=== PATIENT | male | born 1960 | race Caucasian/White ===

== ENCOUNTER 2018-03-14 14:39 | Inpatient (IN) | payer OTHER ==
[~2018-03-14 14:39] MED LIST: DEXAMETHASONE SOD PHOSPHATE INJ 4 MG/1 ML VIAL ONE; GLYCOPYRROLATE 1 MG/5 ML SYRINGE ONE; METOCLOPRAMIDE HCL INJ/PF 10 MG/2 ML SDV ONE; NEOSTIGMINE METHYLSULFATE 10 MG/10 ML VIAL ONE; ONDANSETRON HCL INJ/PF 4 MG/2 ML SDV ONE; PHENYLEPHRINE HCL INJ/PF 10 MG/1 ML SDV ONE; ROCURONIUM BROMIDE INJ 50 MG/5 ML VIAL IV ONE; SUCCINYLCHOLINE CHLORIDE INJ 200 MG/10 ML VIAL ONE
[2018-03-14] MEDS ORDERED: MORPHINE SULFATE 10 MG/ML INJ IV ONE (15:47)
--- NOTE | 2018-03-14 15:47 | ER Document Report ---
ED Medical Screen (RME) - General Chief Complaint: Abdominal Pain Stated Complaint: ABDOMINAL PAIN Time Seen by Provider: 03/14/18 15:28 - HPI Notes: Patient is a 58-year-old male that presents to the emergency department for chief complaint of abdominal hernia. Patient states he has had an abdominal hernia for years. Today the hernia became significantly more painful and feels hard to touch. ROS: GENERAL: Denies fever of chills CV: Denies chest pain PHYSICAL EXAMINATION: GENERAL: Well-appearing, well-nourished and in no acute distress. HEAD: Atraumatic, normocephalic. EYES: Pupils equal round extraocular movements intact, conjunctiva are normal. ENT: Nares patent NECK: Normal range of motion LUNGS: No respiratory distress abdominal: Large tender and hard ventral hernia not reduced Musculoskeletal: Normal range of motion NEUROLOGICAL: Normal speech, normal gait. PSYCH: Normal mood, normal affect. MDM: Patient seen and examined for rapid initial assessment. Vital signs reviewed. A comprehensive ED assessment and evaluation of the patient, analysis of test results and completion of the medical decision making process will be conducted by additional ED providers. - Related Data Allergies/Adverse Reactions: meperidine [From Demerol] Allergy (Verified 03/14/18 15:31) Past Medical History - Social History Chew tobacco use (# tins/day): No Frequency of alcohol use: None Drug Abuse: None - Past Medical History Cardiac Medical History: Reports: Hx Hypercholesterolemia, Hx Hypertension Renal/ Medical History: Reports: Hx Kidney Stones. Denies: Hx Peritoneal Dialysis Past Surgical History: Reports: Hx Abdominal Surgery - gastric bypass, Hx Orthopedic Surgery - sri knee/r hand Physical Exam - Vital signs Vitals: Temp Pulse Resp BP Pulse Ox 97.6 F 69 20 162/89 H 100 03/14/18 15:22 03/14/18 15:22 03/14/18 15:22 03/14/18 15:22 03/14/18 15:22 Course - Vital Signs Vital signs: Temp Pulse Resp BP Pulse Ox 97.6 F 69 20 162/89 H 100 03/14/18 15:22 03/14/18 15:22 03/14/18 15:22 03/14/18 15:22 03/14/18 15:22
[2018-03-14 16:25] LABS: ABSOLUTE EOSINOPHILS # (AUTO) 0.1 10^3/uL (0.0-0.6); ABSOLUTE LYMPHOCYTES (AUTO) 1.1 10^3/uL (0.5-4.7); ABSOLUTE MONOCYTES (AUTO) 0.5 10^3/uL (0.1-1.4); BASOPHILS % (AUTO) 0.6 % (0-2); EOSINOPHILS % (AUTO) 1.6 % (0-6); HEMATOCRIT 43.1 % (37.9-51.0); LYMPHOCYTES % (AUTO) 15.6 % (13-45); MEAN CORPUSCULAR HEMOGLOBIN 33.2 pg (27.0-33.4); MEAN CORPUSCULAR HGB CONC 34.8 g/dL (32.0-36.0); MEAN CORPUSCULAR VOLUME 95 fl (80-97); PLATELET COUNT 168 10^3/uL (150-450); RED BLOOD COUNT 4.52 10^6/uL (4.35-5.55); RED CELL DISTRIBUTION WIDTH 13.9 % (11.5-14.0); SEGMENTED NEUTROPHILS % (AUTO) 74.2 % (42-78); TOTAL CELLS COUNTED % (AUTO) 100 %; WHITE BLOOD COUNT 6.8 10^3/uL (4.0-10.5)
--- NOTE | 2018-03-14 16:25 | ER Document Report ---
ED GI/ - General Chief Complaint: Abdominal Pain Stated Complaint: ABDOMINAL PAIN Time Seen by Provider: 03/14/18 15:28 Mode of Arrival: Ambulatory Information source: Patient Notes: Patient states that around lunchtime today he was getting on a motorcycle and noticed that he was having sharp increase in pain to his abdomen at the site of his umbilical hernia. Patient states that he always has had a chronic hernia to this area that does not completely reduce. Patient does typically wear an abdominal binder to help prevent any problems with the hernia. Patient does complain of some nausea. Patient denies any vomiting or fever. Patient states that the appearance of his hernia has changed and is much larger and the pain is more severe that he has had with his hernia in the past. - HPI Patient complains to provider of: Abdominal pain Onset: This afternoon Timing/Duration: Sudden Quality of pain: Sharp Pain Level: 3 Location: Other - Periumbilical Associated symptoms: Nausea. 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 Denies: Hx Peritoneal Dialysis Past Surgical History: Reports: Hx Abdominal Surgery - gastric bypass, Hx Orthopedic Surgery - sri knee/r hand Review of Systems - Review of Systems Constitutional: No symptoms reported. denies: Fever EENT: No symptoms reported Cardiovascular: No symptoms reported. denies: Chest pain Respiratory: No symptoms reported. denies: Cough, Short of breath Gastrointestinal: Abdominal pain, Nausea, Other - Increased size of appearance of abdominal hernia. denies: Diarrhea, Vomiting Genitourinary: No symptoms reported Male Genitourinary: No symptoms reported Musculoskeletal: No symptoms reported. denies: Back pain Skin: No symptoms reported Hematologic/Lymphatic: No symptoms reported Neurological/Psychological: No symptoms reported. denies: Headaches Physical Exam - Vital signs Vitals: Temp Pulse Resp BP Pulse Ox 97.6 F 69 20 162/89 H 100 03/14/18 15:22 03/14/18 15:22 03/14/18 15:22 03/14/18 15:22 03/14/18 15:22 - General General appearance: Appears well, Alert General appearance pediatric: Attentiveness normal In distress: None - HEENT Head: Normocephalic, Atraumatic Eyes: Normal Conjunctiva: Normal Nasal: Normal Mouth/Lips: Normal Mucous membranes: Normal Pharynx: Normal Neck: Normal, Supple. No: Lymphadenopathy - Respiratory Respiratory status: No respiratory distress Chest status: Nontender Breath sounds: Normal Chest palpation: Normal - Cardiovascular Rhythm: Regular Heart sounds: S1 appreciated, S2 appreciated - Abdominal Inspection: Obese, Other - Umbilical hernia Distension: No distension Bowel sounds: Normal Tenderness: Tender - Tenderness over umbilical hernia Organomegaly: No organomegaly - Back Back: Normal, Nontender. No: CVA tenderness - Extremities General upper extremity: Normal inspection, Normal strength General lower extremity: Normal inspection, Normal strength - Neurological Neuro grossly intact: Yes Cognition: Normal Annie Coma Scale Eye Opening: Spontaneous Wilmont Coma Scale Verbal: Oriented Annie Coma Scale Motor: Obeys Commands - Psychological Associated symptoms: Normal affect, Normal mood - Skin Skin Temperature: Warm Skin Moisture: Dry Skin Color: Normal Course - Re-evaluation Re-evalutation: 03/14/18 16:[address] Pineda who recommends calling him back once the patient's laboratory tests have resulted. 03/14/18 16:[address] Pineda and reviewed patient's laboratory test results. Dr. Pineda will be by to evaluate patient. 03/14/18 17:18 Dr. Pineda at bedside for examination 03/14/18 17:34 Dr. Pineda plans to take patient to the OR, is calling OR crew at this time. - Vital Signs Vital signs: Temp Pulse Resp BP Pulse Ox 97.6 F 69 20 162/89 H 100 03/14/18 15:22 03/14/18 15:22 03/14/18 15:22 03/14/18 15:22 03/14/18 15:22 - Laboratory Result Diagrams: 03/14/18 16:03 03/14/18 16:03 Laboratory results interpreted by me: 03/14/18 16:03 Sodium 136.3 L Alkaline Phosphatase 173 H Labs- Entire Visit 03/14/18 03/14/18 03/14/18 16:03 16:03 16:03 WBC 6.8 RBC 4.52 Hgb 15.0 Hct 43.1 MCV 95 MCH 33.2 MCHC 34.8 RDW 13.9 Plt Count 168 Seg Neutrophils % 74.2 Lymphocytes % 15.6 Monocytes % 8.0 Eosinophils % 1.6 Basophils % 0.6 Absolute Neutrophils 5.0 Absolute Lymphocytes 1.1 Absolute Monocytes 0.5 Absolute Eosinophils 0.1 Absolute Basophils 0.0 Sodium 136.3 L Potassium 4.7 Chloride 98 Carbon Dioxide 27 Anion Gap 11 BUN 11 Creatinine 0.91 Est GFR ( Amer) > 60 Est GFR (Non-Af Amer) > 60 Glucose 101 Lactic Acid 1.9 Calcium 9.1 Total Bilirubin 0.6 Direct Bilirubin 0.3 Neonat Total Bilirubin Not Reportable Neonat Direct Bilirubin Not Reportable Neonat Indirect Bili Not Reportable AST 57 ALT 36 Alkaline Phosphatase 173 H Total Protein 7.2 Albumin 4.4 Discharge - Discharge Clinical Impression: Umbilical hernia, Abdominal pain Condition: Stable Disposition: ADMITTED INPATIENT Admitting Provider: Surgicalist Unit Admitted: Medical Floor
[2018-03-14 16:36] LABS: ALANINE AMINOTRANSFERASE 36 U/L (21-72); ALBUMIN 4.4 g/dL (3.5-5.0); ALKALINE PHOSPHATASE 173 U/L (38-126); ANION GAP 11 (5-19); ASPARTATE AMINO TRANSFERASE 57 U/L (17-59); BILIRUBIN,DIRECT 0.3 mg/dL (0.0-0.4); BILIRUBIN,TOTAL 0.6 mg/dL (0.2-1.3); BLOOD UREA NITROGEN 11 mg/dL (7-20); CALCIUM 9.1 mg/dL (8.4-10.2); CARBON DIOXIDE 27 mmol/L (22-30); CHLORIDE 98 mmol/L (98-107); GLUCOSE 101 mg/dL (75-110); POTASSIUM 4.7 mmol/L (3.6-5.0); SODIUM 136.3 mmol/L (137-145); TOTAL PROTEIN 7.2 g/dL (6.3-8.2)
--- NOTE | 2018-03-14 17:41 | PDOC H&P ---
History of Present Illness Patient complains of: tender umbilical hernia History of Present Illness: PARIS FORD is a 58 year old male with a hx of umbilical hernia, tender today and patient being unable to reduce it. He reports nausea, no vomiting, and gives a hx of umbilical hernia for 2 years. 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 Past Medical History Cardiac Medical History: Reports: Hyperlipidema, Hypertension Past Surgical History Past Surgical History: Reports: Orthopedic Surgery - sri knee/r hand Social History Smoking Status: Never Smoker Family History Parental Family History Reviewed: No Children Family History Reviewed: No Sibling(s) Family History Reviewed.: No Medication/Allergy Allergies/Adverse Reactions: meperidine [From Demerol] Allergy (Verified 03/14/18 15:31) Physical Exam Vital Signs: Temp Pulse Resp BP Pulse Ox 97.6 F 69 20 162/89 H 100 03/14/18 15:22 03/14/18 15:22 03/14/18 15:22 03/14/18 15:22 03/14/18 15:22 Intake & Output 03/13/18 03/14/18 03/15/18 06:59 06:59 06:59 Weight 88.451 kg General appearance: PRESENT: no acute distress, obese Head exam: PRESENT: atraumatic Eye exam: PRESENT: EOMI Mouth exam: PRESENT: moist Neck exam: PRESENT: full ROM Respiratory exam: PRESENT: clear to auscultation sri Cardiovascular exam: PRESENT: RRR GI/Abdominal exam: PRESENT: soft, tenderness - at the umbilicus with incarcerated reducible hernia Extremities exam: PRESENT: full ROM Musculoskeletal exam: PRESENT: full ROM Neurological exam: PRESENT: alert, awake Skin exam: PRESENT: warm Results Laboratory Results: 03/14/18 16:03 03/14/18 16:03 03/14/18 03/14/18 03/14/18 16:03 16:03 16:03 WBC 6.8 RBC 4.52 Hgb 15.0 Hct 43.1 MCV 95 MCH 33.2 MCHC 34.8 RDW 13.9 Plt Count 168 Seg Neutrophils % 74.2 Lymphocytes % 15.6 Monocytes % 8.0 Eosinophils % 1.6 Basophils % 0.6 Absolute Neutrophils 5.0 Absolute Lymphocytes 1.1 Absolute Monocytes 0.5 Absolute Eosinophils 0.1 Absolute Basophils 0.0 Sodium 136.3 L Potassium 4.7 Chloride 98 Carbon Dioxide 27 Anion Gap 11 BUN 11 Creatinine 0.91 Est GFR ( Amer) > 60 Est GFR (Non-Af Amer) > 60 Glucose 101 Lactic Acid 1.9 Calcium 9.1 Total Bilirubin 0.6 AST 57 ALT 36 Alkaline Phosphatase 173 H Total Protein 7.2 Albumin 4.4 Assessment & Plan - Plan Summary Plan Summary: A/ Incarcerated, reducible umbilical hernia hx of laparoscopic gastric bypass bilateral knee replacement peripheral neuropathy Blood work within normal limit 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
[2018-03-14] MEDS ORDERED: CEFOXITIN 1 GM/D5W RTU 1 GM/50 ML RTUPB IV PRN (17:42)
[2018-03-14] MEDS ORDERED: HYDROMORPHONE HCL INJ/PF 2 MG/ML AMPULE ONE (17:52)
[2018-03-14] MEDS ORDERED: FENTANYL CITRATE INJ/PF 100 MCG/2 ML AMPUL ONE (17:52)
[2018-03-14] MEDS ORDERED: PROPOFOL INJ 200 MG/20 ML VIAL IV ONE (17:53)
[2018-03-14] MEDS ORDERED: ACETAMINOPHEN 0 MG/0 ML RTUPB IV ONE (17:53)
[2018-03-14] MEDS ORDERED: MIDAZOLAM 2 MG/2 ML INJ ONE (17:53)
[2018-03-14] MEDS ORDERED: CEFOXITIN 1 GM/D5W RTU 1 GM/50 ML RTUPB IV ONE ×2 (18:04→18:05)
--- NOTE | 2018-03-14 18:43 | EKG REPORT ---
SEVERITY:- NORMAL ECG - SINUS RHYTHM : Confirmed by: Urban Jones MD 14-Mar-2018 18:42:57
[2018-03-14] MEDS ORDERED: LIDOCAINE 1%/EPINEPHRINE INJ 20 ML VIAL ONE (18:57)
[2018-03-14] MEDS ORDERED: DEXMEDETOMIDINE INJ 80 MCG/20 ML VIAL IV ONE (18:57)
[2018-03-14] MEDS ORDERED: ACETAMINOPHEN 1,000 MG/100 ML RTUPB IV ONE (18:58)
[2018-03-14] MEDS ORDERED: ONDANSETRON HCL INJ/PF 4 MG/2 ML SDV IV PRN ×2 (19:43→21:22)
[2018-03-14] MEDS ORDERED: MORPHINE SULFATE 10 MG/ML INJ IV PRN ×2 (19:43→21:22)
[2018-03-14] MEDS ORDERED: FENTANYL CITRATE INJ/PF 100 MCG/2 ML AMPUL IV PRN ×3 (19:43)
[2018-03-14] MEDS ORDERED: PROMETHAZINE HCL INJ 25 MG/1 ML VIAL IV PRN ×2 (19:43)
[2018-03-14] MEDS ORDERED: DIPHENHYDRAMINE HCL 50 MG/ML VIAL IV PRN (19:43)
--- NOTE | 2018-03-14 21:18 | Operative Report ---
Nonrecallable Operative Report DATE OF SURGERY: 03/14/18 PREOPERATIVE DIAGNOSIS: incarcerated umbilical hernia POSTOPERATIVE DIAGNOSIS: same OPERATION: open repair of incarcerated umbilical hernia with Ventralex mesh SURGEON: GAUDENCIO CORONEL ANESTHESIA: Local - 20 mL 1% lidocaine with epinephrine TISSUE REMOVED OR ALTERED: hernia sac and hernia sac fat content COMPLICATIONS: none ESTIMATED BLOOD LOSS: 50 mL INTRAOPERATIVE FINDINGS: large umbilical sac with incarcerated intraperitoneal fat PROCEDURE: see dictation
[2018-03-14] MEDS ORDERED: NORMAL SALINE 1000 ML 1,000 ML IV PRN (21:22)
[2018-03-14] MEDS ORDERED: ACETAMINOPHEN 1,000 MG/100 ML RTUPB IV SCH (22:00)
[2018-03-14] MEDS ORDERED: CEFOXITIN 1 GM/D5W RTU 1 GM/50 ML RTUPB IV SCH (22:00)
[2018-03-14] MEDS ORDERED: HEPARIN SOD (PORCINE) 5,000 UNIT/ML 1 ML SYRINGE SUBCUT ONE (22:15)
[2018-03-15 06:21] LABS: ABSOLUTE LYMPHOCYTES (AUTO) 0.4 10^3/uL (0.5-4.7); ABSOLUTE MONOCYTES (AUTO) 0.4 10^3/uL (0.1-1.4); ABSOLUTE NEUT (AUTO) 5.7 10^3/uL (1.7-8.2); BASOPHILS % (AUTO) 0.2 % (0-2); HEMATOCRIT 39.7 % (37.9-51.0); HEMOGLOBIN 14.1 g/dL (13.5-17.0); LYMPHOCYTES % (AUTO) 6.4 % (13-45); MEAN CORPUSCULAR HEMOGLOBIN 33.6 pg (27.0-33.4); MEAN CORPUSCULAR HGB CONC 35.5 g/dL (32.0-36.0); MEAN CORPUSCULAR VOLUME 94 fl (80-97); MONOCYTES % (AUTO) 5.7 % (3-13); PLATELET COUNT 124 10^3/uL (150-450); RED BLOOD COUNT 4.21 10^6/uL (4.35-5.55); RED CELL DISTRIBUTION WIDTH 13.6 % (11.5-14.0); SEGMENTED NEUTROPHILS % (AUTO) 87.7 % (42-78); TOTAL CELLS COUNTED % (AUTO) 100 %; WHITE BLOOD COUNT 6.5 10^3/uL (4.0-10.5)
[2018-03-15 06:47] LABS: ANION GAP 10 (5-19); BLOOD UREA NITROGEN 14 mg/dL (7-20); CALCIUM 8.5 mg/dL (8.4-10.2); CARBON DIOXIDE 22 mmol/L (22-30); CHLORIDE 103 mmol/L (98-107); GLUCOSE 142 mg/dL (75-110); POTASSIUM 4.8 mmol/L (3.6-5.0); SODIUM 134.7 mmol/L (137-145)
[2018-03-15] MEDS: FAMOTIDINE INJ/PF 20 MG/2 ML SDV IV SCH ×2 (09:54→09:55)
[2018-03-15] MEDS ORDERED: HEPARIN SOD (PORCINE) 5,000 UNIT/ML 1 ML SYRINGE SUBCUT SCH (10:00)
--- NOTE | 2018-03-15 11:39 | PDOC DISCHARGE SUMMARY ---
General - Admit/Disc Date/PCP Admission Date/Primary Care Provider: 03/14/18 18:14 Discharge Date: 03/15/18 - Discharge Diagnosis (1) Incarcerated hernia Is this a current diagnosis for this admission?: Yes - Additional Information Resuscitation Status: Full Code Discharge Diet: As Tolerated Discharge Activity: No Lifting Over 10 Pounds, Walk Frequently Prescriptions: Oxycodone HCl/Acetaminophen [Percocet 10-325 Mg Tablet] 1 each PO Q4H PRN #20 tablet PRN Reason: For Pain Home Medications: Oxycodone HCl/Acetaminophen [Percocet 10-325 Mg Tablet] 1 each PO Q4H PRN #20 tablet 03/15/18 History of Present Illness Patient complains of: abd incisional pain, generalized pain resolved History of Present Illness: PARIS FORD is a 58 year old male who presesented iwth incarcerated abd wall hernia was taken to surgery last pm incarcerated fat was noted hernia repaired with mesh pt has had a routine post op course now taking po wound clean dry [pt ready for dc home today Hospital Course Hospital Course: PARIS FORD is a 58 year old male who presesented iwth incarcerated abd wall hernia was taken to surgery last pm incarcerated fat was noted hernia repaired with mesh pt has had a routine post op course now taking po wound clean dry [pt ready for dc home today Physical Exam Vital Signs: Temp Pulse Resp BP Pulse Ox 98.2 F 66 16 124/75 95 03/15/18 08:00 03/15/18 08:00 03/15/18 08:00 03/15/18 08:00 03/15/18 08:00 Intake & Output 03/14/18 03/15/18 03/16/18 06:59 06:59 06:59 Intake Total 3200 Output Total 2150 Balance 1050 Weight 95.9 kg GI/Abdominal exam: PRESENT: soft, other - wound examined, clean dry Results Laboratory Results: 03/15/18 05:58 03/15/18 05:58 03/14/18 03/14/18 03/14/18 16:03 16:03 16:03 WBC 6.8 RBC 4.52 Hgb 15.0 Hct 43.1 MCV 95 MCH 33.2 MCHC 34.8 RDW 13.9 Plt Count 168 Seg Neutrophils % 74.2 Lymphocytes % 15.6 Monocytes % 8.0 Eosinophils % 1.6 Basophils % 0.6 Absolute Neutrophils 5.0 Absolute Lymphocytes 1.1 Absolute Monocytes 0.5 Absolute Eosinophils 0.1 Absolute Basophils 0.0 Sodium 136.3 L Potassium 4.7 Chloride 98 Carbon Dioxide 27 Anion Gap 11 BUN 11 Creatinine 0.91 Est GFR ( Amer) > 60 Est GFR (Non-Af Amer) > 60 Glucose 101 Lactic Acid 1.9 Calcium 9.1 Total Bilirubin 0.6 AST 57 ALT 36 Alkaline Phosphatase 173 H Total Protein 7.2 Albumin 4.4 03/15/18 03/15/18 05:58 05:58 WBC 6.5 RBC 4.21 L Hgb 14.1 Hct 39.7 MCV 94 MCH 33.6 H MCHC 35.5 RDW 13.6 Plt Count 124 L Seg Neutrophils % 87.7 H Lymphocytes % 6.4 L Monocytes % 5.7 Eosinophils % 0.0 Basophils % 0.2 Absolute Neutrophils 5.7 Absolute Lymphocytes 0.4 L Absolute Monocytes 0.4 Absolute Eosinophils 0.0 Absolute Basophils 0.0 Sodium 134.7 L Potassium 4.8 Chloride 103 Carbon Dioxide 22 Anion Gap 10 BUN 14 Creatinine 0.81 Est GFR ( Amer) > 60 Est GFR (Non-Af Amer) > 60 Glucose 142 H Lactic Acid Calcium 8.5 Total Bilirubin AST ALT Alkaline Phosphatase Total Protein Albumin Qualifiers - * PATIENT BEING DISCHARGED WITH ANY OF THE FOLLOWING DIAGNOSIS: No
[2018-03-15 12:29] VITALS: BP 132/80
--- NOTE | 2018-03-16 07:47 | OPERATIVE REPORT E ---
Operative Report NAME: PARIS FORD : 1960 AGE: 58Y DATE OF SURGERY: 03/14/2018 ROOM: 434 PREOPERATIVE DIAGNOSIS: INCARCERATED UMBILICAL HERNIA. POSTOPERATIVE DIAGNOSIS: INCARCERATED UMBILICAL HERNIA. OPERATION: Open repair of incarcerated umbilical hernia with mesh. SURGEON: GAUDENCIO CORONEL M.D. PRICING SPECIALIST: None. BLEEDIN mL COMPLICATIONS: None. ANESTHESIA: General plus 20 mL of 1% lidocaine with epinephrine. FLUIDS: 1600 URINE OUTPUT: 450 DRAINS: None. INDICATION AND FINDINGS: This is a morbidly obese 58-year-old male who presented to the emergency room with a 2-year history of umbilical hernia, which has become progressively larger. Today when he was walking outside his house the patient started complaining of abdominal pain, scrotal swelling, unable to reduce the umbilical hernia. He presented to the emergency room with above symptoms. The patient underwent blood work, which was within normal limits, and he was preop'd to undergo open repair of the incarcerated umbilical hernia with mesh. The procedure, benefits, and complications explained to the patient. He understands and decides to proceed. DESCRIPTION OF PROCEDURE: The procedure was done in the operating room. The patient in supine position. General anesthesia induced by endotracheal intubation. The abdomen prepped and draped in the usual fashion following placement of Conrad catheter. A transverse incision was made just below the umbilicus. Skin flaps were elevated circumferentially. The umbilical skin was elevated in the superior direction. Divided the umbilical hernia sac. It was then slowly dissected by blunt and Bovie. was completed, circumferentially . The overlying skin of the umbilicus was then from the umbilical sac. The umbilical sac was then entered and a large content made of intraperitoneal fat was identified and this was directed in the surface of the sac. With the use of Bovie, a portion of the omental fat was from the surface of the sac. However, because a large amount of fat and the dusky appearance of the fat, this was excised and sent to Pathology as a surgery specimen. The peritoneal cavity was then fully inspected. The finger was then placed inside the hernia defect, which was about 2 cm in diameter, and swept circumferentially. A few adhesions of the intraabdominal fat to the anterior abdominal wall were taken down bluntly and with Bovie. The sac was then trimmed about 2 cm proximal to the edges of the hernia. The fascia surrounding the hernia was then scored with Bovie and elevated. The anterior rectus sheath was then scored circumferentially to the hernia defect and elevated from the muscle. This was done for about 2 cm proximal to the hernia defect. The stump of the hernia sac was then closed with a running locking suture. A large piece of Ventralex mesh measuring 8 x 11 cm was then placed on the surgical field and the elevated fascia, and tacked to the fascia with horizontal interrupted 0 Prolene sutures. The fascia was then closed with a running looped #1 PDS suture so that the mesh was completely incorporated and covered by the fascia itself. The subcutaneous tissue was irrigated with normal saline until clear. Local bleeders were cauterized. Ten milliliters of Floseal was injected in the subcutaneous tissue and this was approximated in a transverse fashion using interrupted inverted [id number] 2-0 Vicryl sutures supplemented by a few subdermal inverted interrupted 2-0 Vicryl sutures. The skin was closed with 4-0 Monocryl running subcuticular suture, with Dermabond, sterile dressings, and tape applied, held together with a binder. The patient tolerated the procedure well, extubated, and transferred to recovery room in satisfactory condition. DICTATING PHYSICIAN: GAUDENCIO CORONEL M.D. [id number] PHY#: [id number] ID: [id number] JOB#: [id number] ACCT: [id number] cc:GAUDENCIO CORONEL M.D. >
== END 2018-03-15 13:30 | disposition home or self-care (01) | DRG 355 ==
LOC: ER 14:39 → EH 18:14 → 4S 22:50
PROVIDERS: ADMIT Surgery; ATTEND Surgery
PROC: 0WUF0JZ Supplement Abdominal Wall with Synthetic Substitute, Open Approach (ICD-10-PCS; principal; 2018-03-14 18:30)
DX: K42.0 Umbilical hernia with obstruction, without gangrene (principal); E78.00 Pure hypercholesterolemia, unspecified; I10 Essential (primary) hypertension; G62.9 Polyneuropathy, unspecified; Z98.84 Bariatric surgery status; Z96.653 Presence of artificial knee joint, bilateral; Z88.6 Allergy status to analgesic agent
CPT/HCPCS: 36415; 790; 80048; 80053; 83605; 85025; 87040; 87077; 87186; 88302; 93005; 93010; 99285; C1781; J0131; J0330; J1100; J1170; J2250; J2370; J2405; J2704; J2765; J3010; J3490; J7030; S0028

== ENCOUNTER 2019-08-25 11:47 | Inpatient (IN) | payer OTHER ==
--- NOTE | 2019-08-25 11:58 | ER Document Report ---
ED General - General Stated Complaint: SWELLING Time Seen by Provider: 08/25/19 11:54 Notes: 51-year-old man presents with bilateral lower extremity swelling left greater than right with bubbles and redness of the left lower extremity and pain worse than usual. Going on for about a week. Ran out of water pill. History of cirrhosis. Care at [facility] does not know much about his known history. Denies history of DVT. Denies a fever. Afebrile for EMS. TRAVEL OUTSIDE OF THE [place] IN LAST 30 DAYS: No - Related Data Allergies/Adverse Reactions: meperidine [From Demerol] Allergy (Verified 08/25/19 12:00) Past Medical History - General Information source: Patient - Social History Smoking Status: Never Smoker Family History: Reviewed & Not Pertinent - Past Medical History Cardiac Medical History: Reports: Hx Hypercholesterolemia, Hx Hypertension Renal/ Medical History: Reports: Hx Kidney Stones. Denies: Hx Peritoneal Dialysis Past Surgical History: Reports: Hx Abdominal Surgery - gastric bypass, Hx Orthopedic Surgery - sri knee/r hand Review of Systems - Review of Systems Notes: REVIEW OF SYSTEMS GEN: Denies fever, chills, weight loss ENT: Denies sore throat, nasal discharge, ear pain EYES: Denies blurry vision, eye pain, discharge CV: Denies chest pain, palpitations, edema RESP: Denies cough, shortness of breath, wheezing GI: Denies abdominal pain, nausea, vomiting, diarrhea MSK: Swelling leg pain, SKIN: Denies rash, skin lesions LYMPH: Denies swollen glands/lymph nodes NEURO: Denies headache, focal weakness or numbness, dizziness PSYCH: Denies depression, suicidal or homicidal ideation PHYSICAL EXAMINATION General: No acute distress, well-nourished Head: Atraumatic, normocephalic ENT: Mouth normal, oropharynx moist, no exudates or tonsillar enlargement Eyes: Conjunctiva normal, pupils equal, lids normal Neck: No JVD, supple, no guarding CVS: Normal rate, regular rhythm, no murmurs Resp: No resp distress, equal and normal breath sounds bilaterally GI: Nondistended, soft, no tenderness to palpation, no rebound or guarding Ext: N edema both lower extremities left greater than right with pitting all the way to the left groin, erythema of the left inner thigh all the way down the calf and nonhemorrhagic bullae with maceration and poor care with ulcerations of the left foot t Back: No CVA or midline TTP Skin: No rash, warm Lymphatic: No lymphadeopathy noted Neuro: Awake, alert. Face symmetric. GCS 15. Normal movements and slightly decreased in station both feet. -: Yes ROS unobtainable due to patient's medical condition Physical Exam - Vital signs Vitals: Temp Pulse Resp BP Pulse Ox 97.7 F 95 20 114/78 100 08/25/19 12:07 08/25/19 12:07 08/25/19 12:07 08/25/19 12:07 08/25/19 12:07 Course - Re-evaluation Re-evalutation: 08/25/19 13:13 59-year-old male presents with bilateral leg edema from cirrhosis in addition to seem to have cellulitis in left lower extremity No evidence of sepsis We will Doppler to rule out DVT, treat with vancomycin, and her site she. Labs show hyponatremia likely from volume depletion and edema, and ONEAL. Unknown baseline but potassium normal so doubt acute Discussed with Don day - Vital Signs Vital signs: Temp Pulse Resp BP Pulse Ox 97.7 F 95 20 114/78 100 08/25/19 12:11 08/25/19 12:07 08/25/19 12:07 08/25/19 12:07 08/25/19 12:07 08/25/19 11:57 Cellulitis versus DVT versus both in the setting of long-term lower extremity swelling from cirrhosis versus renal failure his heart failure We will culture, plan for DVT ultrasound, and if negative treat with vancomycin and admission - Laboratory Result Diagrams: 08/25/19 12:04 08/25/19 12:04 Laboratory results interpreted by me: 08/25/19 08/25/19 08/25/19 12:04 12:04 12:04 RBC 3.06 L Hgb 11.6 L Hct 32.8 L MCV 107 H MCH 38.0 H Lymph % (Auto) 8.2 L Sodium 124.4 L Chloride 84 L Creatinine 2.57 H Est GFR ( Amer) 31 L Est GFR (MDRD) Non-Af 26 L Calcium 8.0 L NT-Pro-B Natriuret Pep 1500 H - Diagnostic Test Radiology reviewed: Image reviewed, Reports reviewed Discharge - Discharge Clinical Impression: Left leg cellulitis Condition: Fair Disposition: ADMITTED INPATIENT Admitting Provider: Gabino (Hospitalist) Unit Admitted: Medical Floor
[2019-08-25 12:29] LABS: ABSOLUTE EOSINOPHILS # (AUTO) 0.1 10^3/uL (0.0-0.6); ABSOLUTE LYMPHOCYTES (AUTO) 0.6 10^3/uL (0.5-4.7); ABSOLUTE MONOCYTES (AUTO) 0.9 10^3/uL (0.1-1.4); ABSOLUTE NEUT (AUTO) 5.4 10^3/uL (1.7-8.2); BASOPHILS % (AUTO) 0.5 % (0-2); HEMATOCRIT 32.8 % (37.9-51.0); HEMOGLOBIN 11.6 g/dL (13.5-17.0); LYMPHOCYTES % (AUTO) 8.2 % (13-45); MEAN CORPUSCULAR HGB CONC 35.5 g/dL (32.0-36.0); MEAN CORPUSCULAR VOLUME 107 fl (80-97); MONOCYTES % (AUTO) 12.7 % (3-13); PLATELET COUNT 163 10^3/uL (150-450); RED BLOOD COUNT 3.06 10^6/uL (4.35-5.55); RED CELL DISTRIBUTION WIDTH 13.7 % (11.5-14.0); SEGMENTED NEUTROPHILS % (AUTO) 77.6 % (42-78); TOTAL CELLS COUNTED % (AUTO) 100 %
[2019-08-25 12:44] LABS: ANION GAP 12 (5-19); BLOOD UREA NITROGEN 20 mg/dL (7-20); CARBON DIOXIDE 28 mmol/L (22-30); CHLORIDE 84 mmol/L (98-107); GLUCOSE 80 mg/dL (75-110); POTASSIUM 3.7 mmol/L (3.6-5.0)
[2019-08-25] MEDS ORDERED: VANCOMYCIN HCL INJ 1000 MG VIAL IV ONE (12:56)
[2019-08-25] MEDS ORDERED: ONDANSETRON HCL INJ/PF 4 MG/2 ML SDV IV PRN (13:40)
[2019-08-25] MEDS ORDERED: TEMAZEPAM 7.5 MG CAPSULE PO PRN (13:40)
[2019-08-25] MEDS ORDERED: MAG HYDROX/AL HYDROX/SIMETH SUSP 30 ML UDCUP PO PRN (13:40)
[2019-08-25] MEDS ORDERED: ONDANSETRON 4 MG TAB.RAPDIS PO PRN (13:40)
[2019-08-25] MEDS ORDERED: HYDRALAZINE HCL INJ/PF 20 MG/1 ML SDV IV PRN (13:53)
[2019-08-25 13:55] LABS: ALBUMIN 2.7 g/dL (3.5-5.0); ALKALINE PHOSPHATASE 188 U/L (38-126); ASPARTATE AMINO TRANSFERASE 71 U/L (17-59); BILIRUBIN,DIRECT 2.8 mg/dL (0.0-0.4); BILIRUBIN,TOTAL 4.4 mg/dL (0.2-1.3)
[2019-08-25 14:04] LABS: INTERNATIONAL RATION (INR) 1.54; PROTHROMBIN TIME 18.6 SEC (11.4-15.4)
[2019-08-25 14:05] LABS: PARTIAL THROMBOPLASTIN TIME 39.8 SEC (23.5-35.8)
[2019-08-25 14:15] LABS: AMYLASE < 30 U/L (30-110)
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
--- NOTE | 2019-08-25 14:37 | RADIOLOGY REPORT (SQ) ---
EXAM DESCRIPTION: VENOUS UNILATERAL LOWER IMAGES COMPLETED DATE/TIME: 08/25/2019 2:27 pm REASON FOR STUDY: LOWER LEFT COMPARISON: None. TECHNIQUE: Dynamic and static mercer scale and color images acquired of the left leg venous system. Se lected spectral images acquired with additional compression and augmentation maneuvers. The contralat eral common femoral vein and saphenofemoral junction were also imaged. Images stored on PACS. LIMITATIONS: Subcutaneous Edema FINDINGS: COMMON FEMORAL: Normal phasicity, compression and augmentation. No visualized echogenic ma terial on emrcer scale. No defects on color images. FEMORAL: Normal compression and augmentation. No visualized echogenic material on mercer scale. No defe cts on color images. POPLITEAL: Normal compression, augmentation. No visualized echogenic material on mercer scale. No defec ts on color images. CALF VESSELS: Normal compression, augmentation. No visualized echogenic material on mercer scale. No de fects on color images. GSV and SSV: Normal compression, augmentation. No visualized echogenic material on mercer scale. No def ects on color images. ANY DEEP VENOUS INSUFFICIENCY: Not evaluated. ANY EVIDENCE OF POPLITEAL CYST: No. OTHER: No other significant finding. CONTRALATERAL COMMON FEMORAL VEIN AND SAPHENOFEMORAL JUNCTION: Normal phasicity, compression and augmentation. No visualized echogenic material on mercer scale. No de fects on color images. IMPRESSION: No evidence for DVT. TECHNICAL DOCUMENTATION: JOB ID: [id number] 2010 [employer]- All Rights Reserved Reading location - IP/workstation name: [email or web address]
[2019-08-25] MEDS: PANTOPRAZOLE SODIUM 20 MG TABLET.DR PO SCH (14:48)
--- NOTE | 2019-08-25 15:09 | RADIOLOGY REPORT (SQ) ---
EXAM DESCRIPTION: CT ABD/PELVIS NO ORAL OR IV IMAGES COMPLETED DATE/TIME: 08/25/2019 1:34 pm REASON FOR STUDY: liver failure with ascites. COMPARISON: None. TECHNIQUE: CT scan of the abdomen and pelvis performed without intravenous or oral contrast. Images reviewed with lung, soft tissue, and bone windows. Reconstructed coronal and sagittal MPR images revi ewed. All images stored on PACS. All CT scanners at this facility use dose modulation, iterative reconstruction, and/or weight based d osing when appropriate to reduce radiation dose to as low as reasonably achievable (ALARA). [facility]: Dose Right [facility]: CareDose [facility]: Dose Right [facility]: Teradose 4D [facility]: [employer] RADIATION DOSE: CT Rad equipment meets quality standard of care and radiation dose reduction techniq ues were employed. CTDIvol: 18.7 mGy. DLP: 1128 mGy-cm.mGy. LIMITATIONS: None. FINDINGS: LOWER CHEST: No significant findings. No nodules or infiltrates. No pleural effusion. NON-CONTRASTED LIVER, SPLEEN, ADRENALS: Evaluation is limited by lack of IV contrast. There is a shr unken nodular contour of the liver. Severe diffuse hepatic steatosis. Evaluation of the parenchyma is extremely limited. There is mild splenomegaly with spleen measuring 15.3 cm craniocaudal at the m idclavicular line. No adrenal mass. PANCREAS: No masses. No peripancreatic inflammatory changes. GALLBLADDER: There are hyperdense gallstones within the gallbladder lumen. No gallbladder wall thick ening. RIGHT KIDNEY AND URETER: No suspicious masses. Assessment limited by lack of IV contrast. No signif icant calcifications. No hydronephrosis or hydroureter. LEFT KIDNEY AND URETER: No suspicious masses. Assessment limited by lack of IV contrast. No signifi cant calcifications. No hydronephrosis or hydroureter. AORTA AND RETROPERITONEUM: No aneurysm. No retroperitoneal masses or adenopathy. BOWEL AND PERITONEAL CAVITY: Moderate ascites. No pneumoperitoneum. No bowel obstruction or bowel w all thickening. Surgical changes consistent with prior gastric bypass, patent. APPENDIX: Normal. PELVIS, BLADDER, AND ABDOMINAL WALL:Mild subcutaneous edema in the ventral abdomen. No focal drainab le abscess. No pelvic mass. Urinary bladder is unremarkable. BONES: No significant findings. OTHER: No other significant finding. IMPRESSION: 1. Moderate amount of ascites. 2. Shrunken nodular contour of the liver consistent with hepatic cirrhosis. Background severe hepati c steatosis. 3. Mild splenomegaly. 4. Postoperative changes of prior gastric bypass. No bowel obstruction. 5. Cholelithiasis. No CT evidence of acute cholecystitis. COMMENT: Quality ID # [id number]: Final reports with documentation of one or more dose reduction techniques (e.g., Automated exposure control, adjustment of the mA and/or kV according to patient size, use of iterative reconstruction technique) TECHNICAL DOCUMENTATION: JOB ID: [id number] 2010 [employer]- All Rights Reserved Reading location - IP/workstation name: [email or web address]
--- NOTE | 2019-08-25 15:09 | RADIOLOGY REPORT (SQ) ---
EXAM DESCRIPTION: CHEST SINGLE VIEW IMAGES COMPLETED DATE/TIME: 08/25/2019 1:34 pm REASON FOR STUDY: liver disease. COMPARISON: None. EXAM PARAMETERS: NUMBER OF VIEWS: One view. TECHNIQUE: Single frontal radiographic view of the chest acquired. RADIATION DOSE: NA LIMITATIONS: None. FINDINGS: LUNGS AND PLEURA: No opacities, masses or pneumothorax. No pleural effusion. MEDIASTINUM AND HILAR STRUCTURES: No masses. Contour normal. HEART AND VASCULAR STRUCTURES: Heart normal in size. Normal vasculature. BONES: No acute findings. HARDWARE: None in the chest. OTHER: No other significant finding. IMPRESSION: NO ACUTE RADIOGRAPHIC FINDING IN THE CHEST. TECHNICAL DOCUMENTATION: JOB ID: [id number] 2010 [email or web address]- All Rights Reserved Reading location - IP/workstation name: [email or web address]
[2019-08-25 16:58] LABS: AMORPHOUS SEDIMENT,URINE TRACE /HPF; APPEARANCE,URINE SLIGHTLY-CLOUDY; BILIRUBIN,URINE NEGATIVE (NEGATIVE); COLOR,URINE AMBER; GLUCOSE, URINE NEGATIVE (NEGATIVE); KETONES,URINE NEGATIVE (NEGATIVE); PROTEIN,URINE NEGATIVE (NEGATIVE); URINE SPECIFIC GRAVITY 1.012
[2019-08-25] MEDS: CEFTRIAXONE 2 GM/D5W RTU 2 GM/50 ML RTUPB IV SCH (17:18)
[2019-08-25] MEDS: DOCUSATE SODIUM 100 MG CAPSULE PO SCH (17:18)
[2019-08-25] MEDS: NORMAL SALINE 1000 ML 1,000 ML IV PRN (20:50)
[2019-08-26] MEDS: PANTOPRAZOLE SODIUM 20 MG TABLET.DR PO SCH (05:36)
[2019-08-26 06:17] LABS: HEMATOCRIT 32.9 % (37.9-51.0); HEMOGLOBIN 11.8 g/dL (13.5-17.0); MEAN CORPUSCULAR HEMOGLOBIN 38.2 pg (27.0-33.4); MEAN CORPUSCULAR HGB CONC 35.9 g/dL (32.0-36.0); MEAN CORPUSCULAR VOLUME 106 fl (80-97); PLATELET COUNT 117 10^3/uL (150-450); RED BLOOD COUNT 3.09 10^6/uL (4.35-5.55); RED CELL DISTRIBUTION WIDTH 13.3 % (11.5-14.0); WHITE BLOOD COUNT 4.7 10^3/uL (4.0-10.5)
[2019-08-26 06:28] LABS: ALBUMIN 2.4 g/dL (3.5-5.0); ALKALINE PHOSPHATASE 176 U/L (38-126); ANION GAP 10 (5-19); ASPARTATE AMINO TRANSFERASE 61 U/L (17-59); BILIRUBIN,DIRECT 2.5 mg/dL (0.0-0.4); BILIRUBIN,TOTAL 3.9 mg/dL (0.2-1.3); BLOOD UREA NITROGEN 22 mg/dL (7-20); CALCIUM 7.8 mg/dL (8.4-10.2); CARBON DIOXIDE 28 mmol/L (22-30); CHLORIDE 87 mmol/L (98-107); GLUCOSE 79 mg/dL (75-110); POTASSIUM 3.4 mmol/L (3.6-5.0); TOTAL PROTEIN 5.6 g/dL (6.3-8.2)
[2019-08-26 07:14] LABS: ABSOLUTE LYMPHOCYTES# (MANUAL) 0.4 10^3/uL (0.5-4.7); ABSOLUTE MONOCYTES # (MANUAL) 0.3 10^3/uL (0.1-1.4); BASOPHILS % (MANUAL) 0 % (0-2); EOSINOPHILS % (MANUAL) 2 % (0-6); LYMPHOCYTES % (MANUAL) 9 % (13-45); MONOCYTES % (MANUAL) 7 % (3-13); SEGMENTED NEUTROPHILS % (MAN) 82 % (42-78); TOTAL CELLS COUNTED 100
[2019-08-26 07:15] LABS: OVALOCYTES SLIGHT; PLATELET COMMENT ADEQUATE; POLYCHROMASIA SLIGHT; TEAR DROP CELLS SLIGHT
[2019-08-26] MEDS: CEFTRIAXONE 2 GM/D5W RTU 2 GM/50 ML RTUPB IV SCH (10:41)
[2019-08-26] MEDS: DOCUSATE SODIUM 100 MG CAPSULE PO SCH ×2 (10:41→17:17)
--- NOTE | 2019-08-26 15:25 | PDOC PROGRESS REPORT ---
Subjective Progress Note for:: 08/26/19 Reason For Visit: LIVER FAILURE,ASCITES,CHRONIC LYMPHEDEMA,HYPER 08/26/2019 Chronic lymphedema, ascites, cirrhosis, cellulitis of the left lower extremity Physical Exam Vital Signs: Temp Pulse Resp BP Pulse Ox 97.6 F 94 16 98/54 L 96 08/26/19 11:50 08/26/19 11:50 08/26/19 11:50 08/26/19 11:50 08/26/19 11:50 Intake & Output 08/25/19 08/26/19 08/27/19 06:59 06:59 06:59 Intake Total 610 486 Output Total 1300 300 Balance -690 186 Weight 111.4 kg General appearance: PRESENT: no acute distress, mild distress Respiratory exam: PRESENT: clear to auscultation sri. ABSENT: rales, rhonchi, wheezes Cardiovascular exam: PRESENT: RRR. ABSENT: diastolic murmur, rubs, systolic murmur Extremities exam: PRESENT: +2 edema, other - Much less redness to the left lower extremity also less edema Neurological exam: PRESENT: alert, awake, oriented to person, oriented to place, oriented to time, oriented to situation, CN II-XII grossly intact. ABSENT: m otor sensory deficit Psychiatric exam: PRESENT: appropriate affect, normal mood, other - Pleasant, not asking for pain medicine. ABSENT: homicidal ideation, suicidal ideation Results Laboratory Results: 08/26/19 06:00 08/26/19 06:00 08/25/19 08/25/19 08/26/19 15:04 15:25 06:00 WBC 4.7 RBC 3.09 L Hgb 11.8 L Hct 32.9 L MCV 106 H MCH 38.2 H MCHC 35.9 RDW 13.3 Plt Count 117 L Seg Neutrophils % Not Reportable Sodium Potassium Chloride Carbon Dioxide Anion Gap BUN Creatinine Est GFR ( Amer) Glucose Calcium Magnesium Total Bilirubin AST Alkaline Phosphatase Ammonia 13.4 Total Protein Albumin Urine Color DAYA Urine Appearance SLIGHTLY-CLOUDY Urine pH 5.0 Ur Specific [place] 1.012 Urine Protein NEGATIVE Urine Glucose (UA) NEGATIVE Urine Ketones NEGATIVE Urine Blood MODERATE H Urine RBC (Auto) 5 08/26/19 06:00 WBC RBC Hgb Hct MCV MCH MCHC RDW Plt Count Seg Neutrophils % Sodium 124.9 L Potassium 3.4 L Chloride 87 L Carbon Dioxide 28 Anion Gap 10 BUN 22 H Creatinine 2.19 H Est GFR ( Amer) 38 L Glucose 79 Calcium 7.8 L Magnesium 1.8 Total Bilirubin 3.9 H AST 61 H Alkaline Phosphatase 176 H Ammonia Total Protein 5.6 L Albumin 2.4 L Urine Color Urine Appearance Urine pH Ur Specific [place] Urine Protein Urine Glucose (UA) Urine Ketones Urine Blood Urine RBC (Auto) 08/25/19 08/26/19 12:04 06:00 NT-Pro-B Natriuret Pep 1500 H 2060 H Impressions: Venous Doppler Study 08/25/19 11:55 IMPRESSION: No evidence for DVT. Abdomen/Pelvis CT 08/25/19 13:37 IMPRESSION: 1. Moderate amount of ascites. 2. Shrunken nodular contour of the liver consistent with hepatic cirrhosis. Background severe hepatic steatosis. 3. Mild splenomegaly. 4. Postoperative changes of prior gastric bypass. No bowel obstruction. 5. Cholelithiasis. No CT evidence of acute cholecystitis. Chest X-Ray 08/25/19 13:46 IMPRESSION: NO ACUTE RADIOGRAPHIC FINDING IN THE CHEST. Assessment and Plan - Diagnosis (1) Hypertension Is this a current diagnosis for this admission?: Yes (2) Patient noncompliance Is this a current diagnosis for this admission?: Yes (3) Liver failure Is this a current diagnosis for this admission?: Yes (4) Cirrhosis Is this a current diagnosis for this admission?: Yes (5) Ascites Is this a current diagnosis for this admission?: Yes (6) Bilateral chronic lymphedema Is this a current diagnosis for this admission?: Yes (7) Morbid obesity Is this a current diagnosis for this admission?: Yes (8) Left leg cellulitis Is this a current diagnosis for this admission?: Yes - Plan Summary Summary: Patient will be admitted for gentle IV hydration, IV antibiotics, CT scan of the abdomen and pelvis for his ascites, probable paracentesis, wound cultures and blood cultures. Many of the admission labs as well as CT scans are pending. Patient also has a venous Doppler of the left lower extremity that is pending. Patient may be at risk concerning his liver failure and anticoagulants will need to be judiciously prescribed. Coags are pending, platelets however are therapeutic 163,000 Patient expressed his desire to be a DNR 08/26/2019 Temp 97 9 pulse 91 blood pressure 96/71 oxygen saturation 96% on room air Admission white count 7000 today down to 4.7 creatinine is down to 2.19 Sodium is stable but low 124 A1c is 4.1 Liver functions have improved , bilirubin has improved Urine culture and wound cultures are growing out gram-negative rods Currently on IV Rocephin Patient is having a paracentesis done today Venous Doppler yesterday showed no evidence of DVT to the left lower extremity Patient comes in primarily for his cellulitis and appears to be on the right track He has had a paracentesis done once before for his ascites Continue as above - Time Time Spent with patient: 25-34 minutes
--- NOTE | 2019-08-26 16:31 | RADIOLOGY REPORT (SQ) ---
EXAM DESCRIPTION: U/S ABD PARACENTESIS IMAGES COMPLETED DATE/TIME: 08/26/2019 4:17 pm REASON FOR STUDY: Ascites, cirrhosis COMPARISON None. LIMITATIONS: None. PROCEDURE: The procedure, risks, benefits, and alternatives were discussed with the patient and the patient's family who then gave written consent. The right lower quadrant was then marked utilizing s onographic guidance and a time-out was performed to document correct marking verification. The area around the selected percutaneous access site was then prepped and draped with 2% chlorhexidi ne utilizing standard sterile technique. After that, the selected access site was infiltrated with 5 ml of 1% lidocaine. A 6 Hungarian Uini-B-Uhfsdvro catheter was then introduced into the fluid-filled p eritoneal cavity and the fluid was aspirated. After the fluid was aspirated, the catheter was removed and the entry site was covered with a sterile bandage. No immediate complications were noted. Volume of Fluid: 6000 mL. Quality of the Fluid: Straw-colored. Was the fluid collected for analysis? No. Images acquired during the procedure were submitted to PACS. The patient tolerated the procedure with local anesthesia. At the end of the procedure the patient's condition was unchanged from the preprocedural baseline. Documentation of ankb-kn-orvs time the proceduralist spent monitoring the patient: 15 minutes. IMPRESSION: Successful ultrasound-guided paracentesis. COMMENT: Patient medication list reviewed: Yes- Quality ID# [id number]:Eligible professional attests to doc umenting in the medical record they obtained, updated, or reviewed the patient's current medications. TECHNICAL DOCUMENTATION: JOB ID: [id number] 2010 [employer]- All Rights Reserved Reading location - IP/workstation name: [email or web address]
[2019-08-27] MEDS: PANTOPRAZOLE SODIUM 20 MG TABLET.DR PO SCH (05:26)
[2019-08-27] MEDS: NORMAL SALINE 1000 ML 1,000 ML IV PRN (05:26)
[2019-08-27 06:21] LABS: ABSOLUTE LYMPHOCYTES (AUTO) 0.5 10^3/uL (0.5-4.7); ABSOLUTE MONOCYTES (AUTO) 0.5 10^3/uL (0.1-1.4); ABSOLUTE NEUT (AUTO) 2.9 10^3/uL (1.7-8.2); BASOPHILS % (AUTO) 0.5 % (0-2); EOSINOPHILS % (AUTO) 1.2 % (0-6); HEMATOCRIT 30.3 % (37.9-51.0); HEMOGLOBIN 10.9 g/dL (13.5-17.0); LYMPHOCYTES % (AUTO) 12.6 % (13-45); MEAN CORPUSCULAR HEMOGLOBIN 38.2 pg (27.0-33.4); MEAN CORPUSCULAR HGB CONC 35.9 g/dL (32.0-36.0); MEAN CORPUSCULAR VOLUME 106 fl (80-97); MONOCYTES % (AUTO) 13.2 % (3-13); PLATELET COUNT 103 10^3/uL (150-450); RED BLOOD COUNT 2.85 10^6/uL (4.35-5.55); RED CELL DISTRIBUTION WIDTH 13.7 % (11.5-14.0); SEGMENTED NEUTROPHILS % (AUTO) 72.5 % (42-78); TOTAL CELLS COUNTED % (AUTO) 100 %
[2019-08-27] MEDS: CEFTRIAXONE 2 GM/D5W RTU 2 GM/50 ML RTUPB IV SCH (10:42)
[2019-08-27] MEDS: DOCUSATE SODIUM 100 MG CAPSULE PO SCH ×2 (10:42→18:05)
[2019-08-27] MEDS: ALBUMIN HUMAN 12.5 GM/50 ML RTUINJ IV SCH ×4 (11:22→18:06)
--- NOTE | 2019-08-27 12:25 | CDI QUERY ---
CDI Query CDI Review: Dear Provider: To better reflect your patients severity of illness, morbidity, and resource utilization Query Clinical indicators Please clarify and document if you are monitoring / treating/ evaluating any of the following: Acute renal failure Acute renal failure on CKD (please stage) Acute kidney injury 2/2 ATN CKD with new baseline (please stage) Unable to determine Other Hyponatremia Hypo-osmolality Unable to determine Other ED Notes: Labs show hyponatremia likely from volume depletion and edema, and ONEAL Labs: Sodium 124.4 Potassium 3.4 BUN/ CR 20/2.57 --> 22/2.19 CKD Staging CKD Stage I GFR > 90 CKD Stage II GFR 60-89 CKD Stage III GFR 30-59 CKD Stage IV GFR 15-29 CKD Stage V GFR < 15 The terms probable, suspected, likely, possible or still to be ruled out may be used if you are unable to determine the exact nature of a condition. Thank you for your consideration, Clinical Documentation Physician Advisors SURAJ Rider RN SURAJ Borrego [place] Office [phone] Office [phone]
--- NOTE | 2019-08-27 14:55 | PDOC PROGRESS REPORT ---
Subjective Progress Note for:: 08/27/19 Subjective:: Patient states that it is painful to walk on his feet because of all the swelling and as such he has not done much ambulation. He denies any shortness of breath. He admits to history of alcoholic cirrhosis. States that he was evaluated for liver transplant in the past but they took his name of the list because his meld score had dropped. Currently does not follow with a director of sales marketing or primary care provider at this time. Reason For Visit: LIVER FAILURE,ASCITES,CHRONIC LYMPHEDEMA,HYPER Physical Exam Vital Signs: Temp Pulse Resp BP Pulse Ox 97.7 F 81 20 92/61 L 98 08/27/19 08:38 08/27/19 08:38 08/27/19 08:38 08/27/19 08:38 08/27/19 08:38 Intake & Output 08/26/19 08/27/19 08/28/19 06:59 06:59 06:59 Intake Total 1610 536 286 Output Total 1300 1500 Balance 310 -964 286 Weight 111.4 kg 110.6 kg General appearance: PRESENT: no acute distress, cooperative Neck exam: ABSENT: JVD Respiratory exam: PRESENT: clear to auscultation sri, unlabored. ABSENT: tachypnea, wheezes Cardiovascular exam: PRESENT: RRR, +S1, +S2. ABSENT: tachycardia GI/Abdominal exam: PRESENT: ascites, distended, normal bowel sounds, soft. ABSENT: rebound, rigid, tenderness Extremities exam: PRESENT: tenderness - Mild, +2 edema - Bilateral lower extremity with sloughing off of skin on his right dorsum, other - Swelling of both arms Neurological exam: PRESENT: alert, awake, oriented to person, oriented to place, oriented to time Psychiatric exam: ABSENT: agitated, anxious Focused psych exam: ABSENT: delusional, pressured speech Results Laboratory Results: 08/27/19 05:43 08/26/19 06:00 08/27/19 05:43 WBC 4.0 RBC 2.85 L Hgb 10.9 L Hct 30.3 L MCV 106 H MCH 38.2 H MCHC 35.9 RDW 13.7 Plt Count 103 L Seg Neutrophils % 72.5 08/25/19 15:25 Catheterized Urine Urine Culture - Final Escherichia Coli 08/25/19 08/26/19 12:04 06:00 NT-Pro-B Natriuret Pep 1500 H 2060 H Impressions: Venous Doppler Study 08/25/19 11:55 IMPRESSION: No evidence for DVT. Abdomen/Pelvis CT 08/25/19 13:37 IMPRESSION: 1. Moderate amount of ascites. 2. Shrunken nodular contour of the liver consistent with hepatic cirrhosis. Background severe hepatic steatosis. 3. Mild splenomegaly. 4. Postoperative changes of prior gastric bypass. No bowel obstruction. 5. Cholelithiasis. No CT evidence of acute cholecystitis. Chest X-Ray 08/25/19 13:46 IMPRESSION: NO ACUTE RADIOGRAPHIC FINDING IN THE CHEST. Paracentesis Ultrasound 08/26/19 08:00 IMPRESSION: Successful ultrasound-guided paracentesis. Assessment and Plan - Diagnosis (1) Anasarca Is this a current diagnosis for this admission?: Yes Plan: Patient's anasarca is likely secondary to cirrhosis complicated by CKD. He endorses history of chronic kidney disease. I will start patient on spironolactone and IV Lasix for his anasarca. Lower extremity Dopplers show no evidence of DVT. Will give 50 g of albumin today especially after 6 L of fluid was removed via paracentesis yesterday. (2) Cirrhosis Qualifiers: Hepatic cirrhosis type: alcoholic cirrhosis Ascites presence: with ascites Qualified Code(s): K70.31 - Alcoholic cirrhosis of liver with ascites Is this a current diagnosis for this admission?: Yes Plan: Patient states he has longstanding history of cirrhosis. States he was deemed secondary to alcohol and that he was tested for hepatitis viruses at the time. Also states he was initially on the transplant list but later taken off the transplant list because his meld score had improved significantly. He has never had an EGD. He denies history of varices. Cirrhosis confirmed on CT scan. We will place patient on salt and fluid restriction, spironolactone, Lasix. Avoid nephrotoxic and hepatotoxic medications. He will need to set up with a director of sales marketing outpatient and plan for an outpatient EGD for variceal screening. (3) Hyponatremia Is this a current diagnosis for this admission?: Yes Plan: I suspect secondary to patient's cirrhosis. Noted to be hypervolemic but is mostly third spacing and not intravascular. Will treat with diuretics and albumin. Check BMP tomorrow. (4) Hypotension Is this a current diagnosis for this admission?: Yes Plan: Likely secondary to his cirrhosis. Given some albumin today and will monitor blood pressure. If BP continues to persist in the low range, I will place patient on Midodrine. No current signs of sepsis. (5) UTI (urinary tract infection) Is this a current diagnosis for this admission?: Yes Plan: Urine culture growing E. coli. Continue ceftriaxone day 3 of 5 (6) Obesity (BMI 30-39.9) Is this a current diagnosis for this admission?: Yes - Time Time Spent with patient: 15-24 minutes
[2019-08-27] MEDS ORDERED: FUROSEMIDE INJ/PF 40 MG/4 ML SDV IV ONE (15:00)
[2019-08-27] MEDS: POTASSIUM CHLORIDE 10 MEQ TABLET.ER PO SCH ×2 (15:10→21:16)
[2019-08-27] MEDS ORDERED: ALBUMIN HUMAN 12.5 GM/50 ML RTUINJ IV SCH (18:00)
[2019-08-27] MEDS: SPIRONOLACTONE 25 MG TABLET PO SCH (18:05)
[2019-08-27] MEDS: MELATONIN 3 MG TABLET PO SCH (21:16)
[2019-08-27] MEDS: OXYCODONE HCL IR 5 MG TABLET PO PRN (21:17)
[2019-08-27] MEDS ORDERED: FUROSEMIDE INJ/PF 20 MG/2 ML SDV IV SCH (22:00)
[2019-08-28] MEDS: PANTOPRAZOLE SODIUM 20 MG TABLET.DR PO SCH (05:50)
[2019-08-28 06:40] LABS: ABSOLUTE LYMPHOCYTES (AUTO) 0.5 10^3/uL (0.5-4.7); ABSOLUTE MONOCYTES (AUTO) 0.4 10^3/uL (0.1-1.4); ABSOLUTE NEUT (AUTO) 2.1 10^3/uL (1.7-8.2); BASOPHILS % (AUTO) 0.8 % (0-2); EOSINOPHILS % (AUTO) 1.6 % (0-6); HEMATOCRIT 28.5 % (37.9-51.0); HEMOGLOBIN 10.1 g/dL (13.5-17.0); LYMPHOCYTES % (AUTO) 15.6 % (13-45); MEAN CORPUSCULAR HEMOGLOBIN 37.8 pg (27.0-33.4); MEAN CORPUSCULAR HGB CONC 35.5 g/dL (32.0-36.0); MEAN CORPUSCULAR VOLUME 106 fl (80-97); MONOCYTES % (AUTO) 14.2 % (3-13); RED BLOOD COUNT 2.68 10^6/uL (4.35-5.55); RED CELL DISTRIBUTION WIDTH 13.5 % (11.5-14.0); SEGMENTED NEUTROPHILS % (AUTO) 67.8 % (42-78); TOTAL CELLS COUNTED % (AUTO) 100 %; WHITE BLOOD COUNT 3.1 10^3/uL (4.0-10.5)
[2019-08-28 06:55] LABS: ALKALINE PHOSPHATASE 122 U/L (38-126); ANION GAP 7 (5-19); ASPARTATE AMINO TRANSFERASE 51 U/L (17-59); BILIRUBIN,DIRECT 1.6 mg/dL (0.0-0.4); BILIRUBIN,TOTAL 2.8 mg/dL (0.2-1.3); BLOOD UREA NITROGEN 17 mg/dL (7-20); CALCIUM 7.3 mg/dL (8.4-10.2); CARBON DIOXIDE 30 mmol/L (22-30); CHLORIDE 93 mmol/L (98-107); GLUCOSE 82 mg/dL (75-110); POTASSIUM 3.2 mmol/L (3.6-5.0); TOTAL PROTEIN 4.4 g/dL (6.3-8.2)
[2019-08-28 07:02] LABS: PLATELET COUNT 98 10^3/uL (150-450)
[2019-08-28] MEDS ORDERED: POTASSIUM CHLORIDE 10 MEQ TABLET.ER PO ONE (09:00)
[2019-08-28] MEDS: CEFTRIAXONE 2 GM/D5W RTU 2 GM/50 ML RTUPB IV SCH (09:46)
[2019-08-28] MEDS: FUROSEMIDE INJ/PF 20 MG/2 ML SDV IV SCH ×2 (09:46→18:08)
[2019-08-28] MEDS: MAGNESIUM OXIDE 400 MG TABLET PO SCH ×2 (09:53→18:08)
[2019-08-28] MEDS: DOCUSATE SODIUM 100 MG CAPSULE PO SCH ×2 (09:54→18:08)
[2019-08-28] MEDS: POTASSIUM CHLORIDE 10 MEQ TABLET.ER PO SCH ×2 (09:54→21:02)
[2019-08-28] MEDS: SPIRONOLACTONE 25 MG TABLET PO SCH ×2 (09:54→18:08)
--- NOTE | 2019-08-28 17:04 | PDOC PROGRESS REPORT ---
Subjective Progress Note for:: 08/28/19 Subjective:: Patient is doing well. Denies any chest pain. Still not able to ambulate much on his leg because of pain. Reason For Visit: LIVER FAILURE,ASCITES,CHRONIC LYMPHEDEMA,HYPER Physical Exam Vital Signs: Temp Pulse Resp BP Pulse Ox 97.7 F 75 17 105/72 100 08/28/19 15:33 08/28/19 15:33 08/28/19 15:33 08/28/19 15:33 08/28/19 15:33 Intake & Output 08/27/19 08/28/19 08/29/19 06:59 06:59 06:59 Intake Total 536 936 430 Output Total 1500 3125 800 Balance -964 -0247 -370 Weight 110.6 kg 103.2 kg General appearance: PRESENT: no acute distress, cooperative Respiratory exam: PRESENT: unlabored Cardiovascular exam: PRESENT: +S1, +S2 GI/Abdominal exam: PRESENT: soft. ABSENT: rigid, tenderness Extremities exam: PRESENT: +2 edema Results Laboratory Results: 08/28/19 06:00 08/28/19 06:00 08/28/19 08/28/19 06:00 06:00 WBC 3.1 L RBC 2.68 L Hgb 10.1 L Hct 28.5 L MCV 106 H MCH 37.8 H MCHC 35.5 RDW 13.5 Plt Count 98 L Seg Neutrophils % 67.8 Sodium 130.4 L Potassium 3.2 L Chloride 93 L Carbon Dioxide 30 Anion Gap 7 BUN 17 Creatinine 1.00 Est GFR ( Amer) > 60 Glucose 82 Calcium 7.3 L Magnesium 1.4 L Total Bilirubin 2.8 H AST 51 Alkaline Phosphatase 122 Total Protein 4.4 L Albumin 2.0 L 08/25/19 13:35 Leg - Cellulitis Gram Stain - Final 08/25/19 13:35 Leg - Cellulitis Wound Culture - Final Morganella Morganii Escherichia Coli Staphylococcus Aureus 08/25/19 08/26/19 12:04 06:00 NT-Pro-B Natriuret Pep 1500 H 2060 H Impressions: Venous Doppler Study 08/25/19 11:55 IMPRESSION: No evidence for DVT. Abdomen/Pelvis CT 08/25/19 13:37 IMPRESSION: 1. Moderate amount of ascites. 2. Shrunken nodular contour of the liver consistent with hepatic cirrhosis. Background severe hepatic steatosis. 3. Mild splenomegaly. 4. Postoperative changes of prior gastric bypass. No bowel obstruction. 5. Cholelithiasis. No CT evidence of acute cholecystitis. Chest X-Ray 08/25/19 13:46 IMPRESSION: NO ACUTE RADIOGRAPHIC FINDING IN THE CHEST. Paracentesis Ultrasound 08/26/19 08:00 IMPRESSION: Successful ultrasound-guided paracentesis. Assessment and Plan - Diagnosis (1) Anasarca Is this a current diagnosis for this admission?: Yes Plan: Patient's anasarca is likely secondary to cirrhosis complicated by CKD. He endorses history of chronic kidney disease. Lower extremity Dopplers show no evidence of DVT. Continue Lasix and spironolactone. Monitor I's and O's strictly. Fluid restriction. Sodium restriction. (2) Cirrhosis Qualifiers: Hepatic cirrhosis type: alcoholic cirrhosis Ascites presence: with ascites Qualified Code(s): K70.31 - Alcoholic cirrhosis of liver with ascites Is this a current diagnosis for this admission?: Yes Plan: Patient states he has longstanding history of cirrhosis. States he was deemed secondary to alcohol and that he was tested for hepatitis viruses at the time. Also states he was initially on the transplant list but later taken off the transplant list because his meld score had improved significantly. He has never had an EGD. He denies history of varices. Cirrhosis confirmed on CT scan. We will place patient on salt and fluid restriction, spironolactone, Lasix. Avoid nephrotoxic and hepatotoxic medications. He will need to set up with a spring intern outpatient and plan for an outpatient EGD for variceal screening. (3) Hyponatremia Is this a current diagnosis for this admission?: Yes Plan: I suspect secondary to patient's cirrhosis. Noted to be hypervolemic but is mostly third spacing and not intravascular. Sodium improved to 130 today. Continue to monitor BMP with diuresis. (4) Hypotension Is this a current diagnosis for this admission?: Yes Plan: Likely secondary to his cirrhosis. Seems to have resolved with administration of albumin yesterday. Continue to monitor. No evidence of sepsis. (5) UTI (urinary tract infection) Is this a current diagnosis for this admission?: Yes Plan: Urine culture growing E. coli. Continue ceftriaxone day 4 of 5 (6) Obesity (BMI 30-39.9) Is this a current diagnosis for this admission?: Yes - Time Time Spent with patient: Less than 15 minutes
[2019-08-28] MEDS: MELATONIN 3 MG TABLET PO SCH (21:02)
[2019-08-29] MEDS: FUROSEMIDE INJ/PF 20 MG/2 ML SDV IV SCH ×2 (06:11→17:22)
[2019-08-29] MEDS: OXYCODONE HCL IR 5 MG TABLET PO PRN ×3 (06:11→21:42)
[2019-08-29] MEDS: PANTOPRAZOLE SODIUM 20 MG TABLET.DR PO SCH (06:11)
[2019-08-29 06:12] LABS: ALKALINE PHOSPHATASE 122 U/L (38-126); ASPARTATE AMINO TRANSFERASE 52 U/L (17-59); BILIRUBIN,DIRECT 1.2 mg/dL (0.0-0.4); BILIRUBIN,TOTAL 2.2 mg/dL (0.2-1.3); BLOOD UREA NITROGEN 16 mg/dL (7-20); CALCIUM 7.2 mg/dL (8.4-10.2); GLUCOSE 89 mg/dL (75-110); POTASSIUM 3.4 mmol/L (3.6-5.0); TOTAL PROTEIN 4.4 g/dL (6.3-8.2)
[2019-08-29 06:16] LABS: CARBON DIOXIDE 33 mmol/L (22-30); CHLORIDE 95 mmol/L (98-107)
[2019-08-29 06:17] LABS: ANION GAP 2 (5-19)
[2019-08-29] MEDS ORDERED: FUROSEMIDE INJ/PF 20 MG/2 ML SDV IV ONE (08:17)
[2019-08-29] MEDS: MAGNESIUM SULFATE/D5W 1 GM/100 ML RTUPB IV SCH ×2 (08:49→10:07)
[2019-08-29] MEDS: SPIRONOLACTONE 25 MG TABLET PO SCH ×2 (10:08→17:23)
[2019-08-29] MEDS: MAGNESIUM OXIDE 400 MG TABLET PO SCH ×2 (10:08→17:23)
[2019-08-29] MEDS: POTASSIUM CHLORIDE 10 MEQ TABLET.ER PO SCH ×2 (10:08→21:42)
[2019-08-29] MEDS: DOCUSATE SODIUM 100 MG CAPSULE PO SCH ×2 (10:08→17:23)
[2019-08-29] MEDS: CEFTRIAXONE 2 GM/D5W RTU 2 GM/50 ML RTUPB IV SCH (10:18)
--- NOTE | 2019-08-29 10:18 | PDOC PROGRESS REPORT ---
Subjective Progress Note for:: 08/29/19 Subjective:: Patient feels well. He had some bleeding from left foot yesterday when he ambulated. His skin is quite friable in the area due to his chronic LE edema and improvement of the edema. Patient still has pain on ambulation. States that he lives alone in a camper. Reason For Visit: LIVER FAILURE,ASCITES,CHRONIC LYMPHEDEMA,HYPER Physical Exam Vital Signs: Temp Pulse Resp BP Pulse Ox 97.5 F 70 16 100/73 100 08/29/19 07:20 08/29/19 07:20 08/29/19 07:20 08/29/19 07:20 08/29/19 07:20 Intake & Output 08/28/19 08/29/19 08/30/19 06:59 06:59 06:59 Intake Total 936 1026 Output Total 3125 1525 Balance -2189 -499 Weight 103.2 kg 102.4 kg General appearance: PRESENT: no acute distress, cooperative Neck exam: ABSENT: JVD Respiratory exam: PRESENT: symmetrical, unlabored. ABSENT: accessory muscle use, retraction, tachypnea Cardiovascular exam: PRESENT: RRR, +S1, +S2. ABSENT: tachycardia GI/Abdominal exam: PRESENT: soft. ABSENT: rebound, rigid, tenderness Extremities exam: PRESENT: +2 edema Neurological exam: PRESENT: alert, awake, oriented to person, oriented to place, oriented to time Psychiatric exam: ABSENT: agitated, anxious Focused psych exam: ABSENT: pressured speech Skin exam: ABSENT: jaundice Results Laboratory Results: 08/28/19 06:00 08/29/19 05:16 08/29/19 05:16 Sodium 130.2 L Potassium 3.4 L Chloride 95 L Carbon Dioxide 33 H Anion Gap 2 L BUN 16 Creatinine 0.82 Est GFR ( Amer) > 60 Glucose 89 Calcium 7.2 L Magnesium 1.4 L Total Bilirubin 2.2 H AST 52 Alkaline Phosphatase 122 Total Protein 4.4 L Albumin 2.0 L 08/25/19 13:35 Leg - Cellulitis Gram Stain - Final 08/25/19 13:35 Leg - Cellulitis Wound Culture - Final Morganella Morganii Escherichia Coli Staphylococcus Aureus 08/25/19 08/26/19 12:04 06:00 NT-Pro-B Natriuret Pep 1500 H 2060 H Impressions: Venous Doppler Study 08/25/19 11:55 IMPRESSION: No evidence for DVT. Abdomen/Pelvis CT 08/25/19 13:37 IMPRESSION: 1. Moderate amount of ascites. 2. Shrunken nodular contour of the liver consistent with hepatic cirrhosis. Background severe hepatic steatosis. 3. Mild splenomegaly. 4. Postoperative changes of prior gastric bypass. No bowel obstruction. 5. Cholelithiasis. No CT evidence of acute cholecystitis. Chest X-Ray 08/25/19 13:46 IMPRESSION: NO ACUTE RADIOGRAPHIC FINDING IN THE CHEST. Paracentesis Ultrasound 08/26/19 08:00 IMPRESSION: Successful ultrasound-guided paracentesis. Assessment and Plan - Diagnosis (1) Anasarca Is this a current diagnosis for this admission?: Yes Plan: Patient's anasarca is likely secondary to cirrhosis complicated by CKD. He endorses history of chronic kidney disease. Lower extremity Dopplers show no evidence of DVT. Continue Lasix and spironolactone. Monitor I's and O's strictly. Fluid restriction. Sodium restriction. I will also give some 25 g IV albumin today as well. Physical therapy, Occupational Therapy, social media marketer consulted. (2) Cirrhosis Qualifiers: Hepatic cirrhosis type: alcoholic cirrhosis Ascites presence: with ascites Qualified Code(s): K70.31 - Alcoholic cirrhosis of liver with ascites Is this a current diagnosis for this admission?: Yes Plan: Patient states he has longstanding history of cirrhosis. States he was deemed secondary to alcohol and that he was tested for hepatitis viruses at the time. Also states he was initially on the transplant list but later taken off the transplant list because his meld score had improved significantly. He has never had an EGD. He denies history of varices. Cirrhosis confirmed on CT scan. salt and fluid restriction, spironolactone, Lasix. Avoid nephrotoxic and hepatotoxic medications. He will need to set up with a lapel baster outpatient and plan for an outpatient EGD for variceal screening. (3) Hyponatremia Is this a current diagnosis for this admission?: Yes Plan: I suspect secondary to patient's cirrhosis. Noted to be hypervolemic but is mostly third spacing and not intravascular. Sodium persisting at 130 today. Continue to monitor BMP with diuresis. (4) Hypotension Is this a current diagnosis for this admission?: Yes Plan: Resolved. Continue to monitor vital signs. (5) UTI (urinary tract infection) Is this a current diagnosis for this admission?: Yes Plan: Urine culture growing E. coli. Continue ceftriaxone day 5 of 5 (6) Renal failure (ARF), acute on chronic Qualifiers: Acute renal failure type: unspecified Chronic kidney disease stage: unspecified stage Qualified Code(s): N17.9 - Acute kidney failure, unspecified; N18.9 - Chronic kidney disease, unspecified Is this a current diagnosis for this admission?: Yes Plan: Patient's baseline creatinine is unknown. However he endorses history of CKD [stage unknown] but it seems that his renal function has improved significantly from a creatinine of over 2 to 0.8 today with diuresis and administration of albumin. We will continue to monitor renal function. (7) Obesity (BMI 30-39.9) Is this a current diagnosis for this admission?: Yes - Time Time Spent with patient: Less than 15 minutes
[2019-08-29] MEDS: POTASSI CL 20 MEQ/50 ML RIDER 20 MEQ/50 ML RTUPB IV SCH ×2 (11:22→13:42)
[2019-08-29] MEDS: ALBUMIN HUMAN 12.5 GM/50 ML RTUINJ IV SCH ×2 (11:27→17:23)
[2019-08-29] MEDS ORDERED: ONDANSETRON HCL INJ/PF 4 MG/2 ML SDV IV PRN (11:30)
[2019-08-29] MEDS ORDERED: ONDANSETRON 4 MG TAB.RAPDIS PO PRN (11:30)
[2019-08-29] MEDS: MELATONIN 3 MG TABLET PO SCH (21:42)
[2019-08-30] MEDS: PANTOPRAZOLE SODIUM 20 MG TABLET.DR PO SCH (05:14)
[2019-08-30 06:33] LABS: BLOOD UREA NITROGEN 13 mg/dL (7-20); CALCIUM 7.2 mg/dL (8.4-10.2); CARBON DIOXIDE 30 mmol/L (22-30); GLUCOSE 88 mg/dL (75-110); POTASSIUM 3.9 mmol/L (3.6-5.0)
[2019-08-30 06:38] LABS: ANION GAP 5 (5-19); CHLORIDE 97 mmol/L (98-107)
[2019-08-30] MEDS: POTASSIUM CHLORIDE 10 MEQ TABLET.ER PO SCH (09:07)
[2019-08-30] MEDS: CEFTRIAXONE 2 GM/D5W RTU 2 GM/50 ML RTUPB IV SCH (09:07)
[2019-08-30] MEDS: DOCUSATE SODIUM 100 MG CAPSULE PO SCH (09:07)
[2019-08-30] MEDS: MAGNESIUM OXIDE 400 MG TABLET PO SCH (09:07)
[2019-08-30] MEDS: FUROSEMIDE INJ/PF 20 MG/2 ML SDV IV SCH (09:08)
[2019-08-30] MEDS: SPIRONOLACTONE 25 MG TABLET PO SCH (09:08)
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
[2019-08-30 15:51] VITALS: BP 90/60
== END 2019-08-30 16:55 | disposition home or self-care (01) | DRG 433 ==
LOC: ER 11:47 → EH 14:23 → 4S 15:13
PROVIDERS: ADMIT Hospitalist; ATTEND Internal Medicine
PROC: 0W9G3ZZ Drainage of Peritoneal Cavity, Percutaneous Approach (ICD-10-PCS; principal; 2019-08-26)
DX: K70.31 Alcoholic cirrhosis of liver with ascites (principal); L03.116 Cellulitis of left lower limb; E87.1 Hypo-osmolality and hyponatremia; N17.9 Acute kidney failure, unspecified; N39.0 Urinary tract infection, site not specified; E78.00 Pure hypercholesterolemia, unspecified; I95.9 Hypotension, unspecified; E87.6 Hypokalemia; E83.42 Hypomagnesemia; N18.9 Chronic kidney disease, unspecified; I12.9 Hypertensive chronic kidney disease with stage 1 through stage 4 chronic kidney disease, or unspecified chronic kidney disease; M79.89 Other specified soft tissue disorders; I89.0 Lymphedema, not elsewhere classified; B96.20 Unspecified Escherichia coli [E. coli] as the cause of diseases classified elsewhere; L55.9 Sunburn, unspecified; Z98.84 Bariatric surgery status; Z91.19 Patient's noncompliance with other medical treatment and regimen
CPT/HCPCS: 36415; 49083; 71045; 74176; 80048; 80053; 80076; 81001; 82140; 82150; 83036; 83690; 83735; 83880; 85025; 85610; 85730; 87040; 87070; 87077; 87086; 87088; 87186; 87205; 93971; 96374; 99285; J0696; J1940; J3370; J3475; J3480; J3490; J7030; P9047

== ENCOUNTER 2019-09-26 12:07 | Emergency (ER) | payer OTHER ==
--- NOTE | 2019-09-26 15:37 | ER Document Report ---
ED General - General Chief Complaint: Shortness Of Breath Stated Complaint: SHORT OF BREATH Time Seen by Provider: 09/26/19 15:12 Primary Care Provider: FAITH,SUZIE [Primary Care Provider] - Follow up as needed TRAVEL OUTSIDE OF THE [place] IN LAST 30 DAYS: No - HPI Notes: Patient is a 59-year-old male who presents the emergency department for evaluation of dyspnea. He has an history of alcoholic cirrhosis. Back in the end of July he presented here with significant swelling. He had a large amount of ascites. He was admitted to the hospital, had paracentesis. Today he states he is short of breath because his abdomen is grown so much. He followed up with gastroenterology, who increased his Lasix yesterday, but otherwise did not change anything. He does not have a baker head. He said no fevers or chills. No coughing. He states he just is having difficulty breathing because his abdomen is so swollen. - Related Data Allergies/Adverse Reactions: meperidine [From Demerol] Allergy (Verified 09/26/19 13:44) Home Medications: Lasix. Spironolactone. Potassium Past Medical History - General Information source: Patient - Social History Smoking Status: Never Smoker Frequency of alcohol use: Former alcoholic Family History: Reviewed & Not Pertinent - Past Medical History Cardiac Medical History: Reports: Hx Hypercholesterolemia, Hx Hypertension Renal/ Medical History: Reports: Hx Kidney Stones. Denies: Hx Peritoneal Dialysis GI Medical History: Reports: Hx Cirrhosis Psychiatric Medical History: Denies: Hx Depression Past Surgical History: Reports: Hx Abdominal Surgery - gastric bypass, Hx Herniorrhaphy, Hx Orthopedic Surgery - sri knee/r hand Review of Systems - Review of Systems Cardiovascular: See HPI Respiratory: See HPI -: Yes All other systems reviewed and negative Physical Exam - Vital signs Vitals: Pulse Pulse Ox 115 H 95 09/26/19 12:13 09/26/19 12:13 - Notes Notes: This is a pleasant 59-year-old male appears his stated age, no acute distress. Vital signs reviewed, please refer to chart. Head is normocephalic, atraumatic. Pupils equal round, reactive to light. Neck is supple without meningismus. Heart is regular rate and rhythm. Lungs are clear to auscultation bilaterally. Abdomen is distended with large ascites, positive fluid wave. He has a small umbilical hernia with palpable mesh and well-healed surgical scar just lateral to the hernia. No abdominal tenderness. Extremities without cyanosis, clubbing. Posterior calves are nontender. Peripheral pulses are equal. Skin is warm and dry. Patient is awake, alert, neurological exam is nonfocal. Course - Re-evaluation Re-evalutation: 09/26/19 15:36 Patient presents to the emergency department for evaluation. His chief complaint is dyspnea, but I suspect this is all secondary to his ascites. I discussed with the patient the fact that [facility] He voiced understanding. Otherwise I placed orders for basic laboratory investigations as well as paracentesis by IR. Patient is stable. 09/26/19 18:23 Patient was successful paracentesis by ultrasound, feeling significantly improved. He is already talked with his primary care who will schedule regular paracenteses as an outpatient. He is to follow-up with primary care, return to the ED with worsening or new concerning symptoms of any sort. - Vital Signs Vital signs: Temp Pulse Resp BP Pulse Ox 97.9 F 108 H 26 H 127/83 H 96 09/26/19 13:45 09/26/19 13:45 09/26/19 13:45 09/26/19 13:45 09/26/19 13:45 - Laboratory Result Diagrams: 09/26/19 16:53 09/26/19 15:44 Laboratory results interpreted by me: 09/26/19 09/26/19 09/26/19 15:44 15:44 16:53 RBC 3.08 L Hgb 11.1 L Hct 31.3 L MCV 102 H D MCH 36.0 H RDW 14.5 H Lymph % (Auto) 12.1 L PT 15.7 H Sodium 132.4 L Potassium 3.3 L Calcium 7.7 L Total Bilirubin 2.2 H Direct Bilirubin 0.8 H Albumin 2.9 L - Diagnostic Test Radiology reviewed: Reports reviewed Discharge - Discharge Clinical Impression: Ascites Qualifiers: Ascites type: due to alcoholic cirrhosis Qualified Code(s): K70.31 - Alcoholic cirrhosis of liver with ascites Cirrhosis Qualifiers: Hepatic cirrhosis type: alcoholic cirrhosis Ascites presence: with ascites Qualified Code(s): K70.31 - Alcoholic cirrhosis of liver with ascites Condition: Stable Disposition: HOME, SELF-CARE Instructions: Liver Function Abnormality ([facility]) Additional Instructions: Have scheduled paracenteses as discussed, set up by her primary care provider. If you develop fevers, increased pain, vomiting, or any other new or concerning symptoms, please return immediately to the emergency department for evaluation. Referrals: [facility] [Primary [facility]] - Follow up as needed
[2019-09-26 16:17] LABS: INTERNATIONAL RATION (INR) 1.25; PROTHROMBIN TIME 15.7 SEC (11.4-15.4)
[2019-09-26 16:18] LABS: PARTIAL THROMBOPLASTIN TIME 31.9 SEC (23.5-35.8)
[2019-09-26 16:29] LABS: ALBUMIN 2.9 g/dL (3.5-5.0); ALKALINE PHOSPHATASE 112 U/L (38-126); ANION GAP 7 (5-19); ASPARTATE AMINO TRANSFERASE 40 U/L (17-59); BILIRUBIN,DIRECT 0.8 mg/dL (0.0-0.4); BILIRUBIN,TOTAL 2.2 mg/dL (0.2-1.3); BLOOD UREA NITROGEN 8 mg/dL (7-20); CALCIUM 7.7 mg/dL (8.4-10.2); CARBON DIOXIDE 27 mmol/L (22-30); CHLORIDE 98 mmol/L (98-107); GLUCOSE 99 mg/dL (75-110); POTASSIUM 3.3 mmol/L (3.6-5.0); TOTAL PROTEIN 6.3 g/dL (6.3-8.2)
[2019-09-26 17:07] LABS: ABSOLUTE LYMPHOCYTES (AUTO) 0.8 10^3/uL (0.5-4.7); ABSOLUTE MONOCYTES (AUTO) 0.8 10^3/uL (0.1-1.4); ABSOLUTE NEUT (AUTO) 4.7 10^3/uL (1.7-8.2); BASOPHILS % (AUTO) 0.7 % (0-2); EOSINOPHILS % (AUTO) 0.7 % (0-6); HEMATOCRIT 31.3 % (37.9-51.0); HEMOGLOBIN 11.1 g/dL (13.5-17.0); LYMPHOCYTES % (AUTO) 12.1 % (13-45); MEAN CORPUSCULAR HGB CONC 35.4 g/dL (32.0-36.0); MONOCYTES % (AUTO) 12.5 % (3-13); PLATELET COUNT 183 10^3/uL (150-450); RED BLOOD COUNT 3.08 10^6/uL (4.35-5.55); RED CELL DISTRIBUTION WIDTH 14.5 % (11.5-14.0); TOTAL CELLS COUNTED % (AUTO) 100 %; WHITE BLOOD COUNT 6.3 10^3/uL (4.0-10.5)
[2019-09-26 17:10] LABS: MEAN CORPUSCULAR VOLUME 102 fl (80-97)
[2019-09-26 18:32] VITALS: BP 132/78
--- NOTE | 2019-09-27 08:18 | RADIOLOGY REPORT (SQ) ---
EXAM DESCRIPTION: U/S ABD PARACENTESIS IMAGES COMPLETED DATE/TIME: 09/26/2019 6:27 pm REASON FOR STUDY: ascites with dyspnea COMPARISON 08/26/2019 LIMITATIONS: None. PROCEDURE: After obtaining informed consent, the patient was brought to the ultrasound suite. The p rocedure was performed with the patient on a gurney. Ultrasound was used to identify a prominent poc ket of ascites in the right lower quadrant. An appropriate access site was selected. The patient wa s prepped and draped in usual sterile fashion. The access site was anesthetized with 7 mL 1% lidoca ine. A Czpt-W-Puccntkc needle was advanced into the fluid. After aspiration of fluid the needle, th e catheter was advanced off the needle into the fluid. A total of 6,000 mL of dark lakshmi colored flu id was removed. The patient tolerated the procedure well left the department in satisfactory conditio n. Onslow boyce used for skin closure IMPRESSION: Successful ultrasound-guided THERAPEUTIC ONLY paracentesis COMMENT: Patient medication list reviewed: Yes- Quality ID# [id number]:Eligible professional attests to doc umenting in the medical record they obtained, updated, or reviewed the patient's current medications. TECHNICAL DOCUMENTATION: JOB ID: [id number] 2010 [employer]- All Rights Reserved Reading location - IP/workstation name: [email or web address]
== END 2019-09-26 18:32 | disposition home or self-care (01) ==
LOC: ER 12:07
DX: K70.31 Alcoholic cirrhosis of liver with ascites (principal); I10 Essential (primary) hypertension; Z98.84 Bariatric surgery status; Z79.899 Other long term (current) drug therapy
CPT/HCPCS: 36415; 49083; 80053; 85025; 85610; 85730; 99285

== ENCOUNTER 2019-10-04 11:18 | Emergency (ER) | payer OTHER ==
[2019-10-04 12:39] LABS: ALBUMIN 3.4 g/dL (3.5-5.0); ALKALINE PHOSPHATASE 123 U/L (38-126); ANION GAP 10 (5-19); ASPARTATE AMINO TRANSFERASE 45 U/L (17-59); BILIRUBIN,DIRECT 0.9 mg/dL (0.0-0.4); BILIRUBIN,TOTAL 2.4 mg/dL (0.2-1.3); BLOOD UREA NITROGEN 14 mg/dL (7-20); CALCIUM 8.6 mg/dL (8.4-10.2); CARBON DIOXIDE 26 mmol/L (22-30); CHLORIDE 95 mmol/L (98-107); CREATINE KINASE 31 U/L (55-170); GLUCOSE 99 mg/dL (75-110); POTASSIUM 3.3 mmol/L (3.6-5.0); TOTAL PROTEIN 6.9 g/dL (6.3-8.2)
[2019-10-04 12:43] LABS: ABSOLUTE BASOPHILS # (AUTO) 0.1 10^3/uL (0.0-0.2); ABSOLUTE EOSINOPHILS # (AUTO) 0.1 10^3/uL (0.0-0.6); ABSOLUTE LYMPHOCYTES (AUTO) 0.7 10^3/uL (0.5-4.7); ABSOLUTE MONOCYTES (AUTO) 0.4 10^3/uL (0.1-1.4); ABSOLUTE NEUT (AUTO) 5.7 10^3/uL (1.7-8.2); BASOPHILS % (AUTO) 0.8 % (0-2); EOSINOPHILS % (AUTO) 0.8 % (0-6); HEMATOCRIT 31.6 % (37.9-51.0); HEMOGLOBIN 11.6 g/dL (13.5-17.0); LYMPHOCYTES % (AUTO) 10.4 % (13-45); MEAN CORPUSCULAR HEMOGLOBIN 35.3 pg (27.0-33.4); MEAN CORPUSCULAR HGB CONC 36.5 g/dL (32.0-36.0); MONOCYTES % (AUTO) 5.5 % (3-13); PLATELET COUNT 273 10^3/uL (150-450); RED BLOOD COUNT 3.27 10^6/uL (4.35-5.55); RED CELL DISTRIBUTION WIDTH 14.7 % (11.5-14.0); SEGMENTED NEUTROPHILS % (AUTO) 82.5 % (42-78); TOTAL CELLS COUNTED % (AUTO) 100 %; WHITE BLOOD COUNT 6.9 10^3/uL (4.0-10.5)
[2019-10-04 12:44] LABS: MEAN CORPUSCULAR VOLUME 97 fl (80-97)
[2019-10-04 12:51] LABS: CREATINE KINASE MB 1.01 ng/mL (<4.55); TROPONIN I < 0.012 ng/mL
[2019-10-04] MEDS ORDERED: POTASSIUM CHLORIDE 10 MEQ TABLET.ER PO ONE (13:29)
--- NOTE | 2019-10-04 14:44 | ER Document Report ---
ED General - General Chief Complaint: Weakness Stated Complaint: LEG WEAKNESS Time Seen by Provider: 10/04/19 11:32 Primary Care Provider: SUZIE CUEVAS [Primary Care Provider] - Follow up as needed TRAVEL OUTSIDE OF THE [place] IN LAST 30 DAYS: No - HPI Notes: Patient is a 59-year-old male with a history of cirrhosis who presents to the emergency department for evaluation of weakness. He initially stated abdominal pain, but he states he always gets abdominal pain after paracentesis. He states that it is diffuse, it is present all the time, and it is not any different. He states primarily he is here because he is having weakness and pain in his legs. He states he could not even get himself up. He denies any fevers or chills. He has had no nausea or vomiting. He states he is eating and drinking normally. He has been taking his medications as prescribed. - Related Data Allergies/Adverse Reactions: meperidine [From Demerol] Allergy (Verified 10/04/19 12:57) Past Medical History - General Information source: Patient - Social History Smoking Status: Current Every Day Smoker Family History: Reviewed & Not Pertinent - Past Medical History Cardiac Medical History: Reports: Hx Hypercholesterolemia, Hx Hypertension Renal/ Medical History: Reports: Hx Kidney Stones. Denies: Hx Peritoneal Dialysis GI Medical History: Reports: Hx Cirrhosis Psychiatric Medical History: Denies: Hx Depression Past Surgical History: Reports: Hx Abdominal Surgery - gastric bypass, Hx Herniorrhaphy, Hx Orthopedic Surgery - sri knee/r hand Review of Systems - Review of Systems Constitutional: See HPI Musculoskeletal: See HPI -: Yes All other systems reviewed and negative Physical Exam - Vital signs Vitals: Temp 97.6 F 10/04/19 11:37 - Notes Notes: Vital signs reviewed, please refer to chart. Head is normocephalic, atraumatic. Pupils equal round, reactive to light. Neck is supple without meningismus. Heart is regular rate and rhythm. Lungs are clear to auscultation bilaterally. Abdomen is soft, nontender, normoactive bowel sounds throughout. Extremities without cyanosis, clubbing. Posterior calves are nontender. Peripheral pulses are equal. Skin is warm and dry. Patient is awake, alert, oriented x3. Cranial nerves II - XII are grossly intact without focal neurological deficits. Strength is plus 4 out of 5 bilateral upper and lower extremities. Sensation is intact. Reflexes symmetrical. Intact [id number], rapid alternating movements, [id number]. Course - Re-evaluation Re-evalutation: 10/04/19 14:43 Patient presents to the emergency department for evaluation of weakness. He has no focal neurological deficits. His laboratory vesication's are ordered. Still awaiting urinalysis. He has a mild hypokalemia and mild hyponatremia. His hyponatremia is stable. His potassium was replaced. I checked his magnesium level which was found to be within normal limits. Still awaiting urinalysis. We will continue to monitor. 10/04/19 17:52 Patient had some mild hypokalemia that she is new, but otherwise everything is been stable. Urinalysis failed to reveal any signs of infection. His vital signs of been stable. The patient does have some weakness in his legs, and may in fact need physical therapy, but [facility] Otherwise, he has a walker. He currently lives in a hotel room. He does not have to worry about stairs at this time. He is told if he develops worsening he needs to return, otherwise he should [facility]. - Vital Signs Vital signs: Temp Pulse Resp BP Pulse Ox 97.6 F 90 24 H 115/72 100 10/04/19 11:37 10/04/19 17:00 10/04/19 17:01 10/04/19 17:01 10/04/19 17:01 - Laboratory Result Diagrams: 10/04/19 11:58 10/04/19 11:58 Laboratory results interpreted by me: 10/04/19 10/04/19 10/04/19 11:58 11:58 17:06 RBC 3.27 L Hgb 11.6 L Hct 31.6 L MCH 35.3 H MCHC 36.5 H RDW 14.7 H Lymph % (Auto) 10.4 L Seg Neutrophils % 82.5 H Sodium 130.7 L Potassium 3.3 L Chloride 95 L Total Bilirubin 2.4 H Direct Bilirubin 0.9 H Creatine Kinase 31 L Albumin 3.4 L Urine Ketones TRACE H Urine Urobilinogen 4.0 H Discharge - Discharge Clinical Impression: Liver failure, Generalized weakness, Hypokalemia Condition: Stable Disposition: HOME, SELF-CARE Instructions: Weakness ([facility]), Hypokalemia ([facility]) Additional Instructions: Please try to ambulate with your walker as safely and as much as possible. You need [facility]. Discuss your generalized weakness, low potassium, and arrange follow-up. He should also discuss potential physical therapy. Return to the emergency department with worsening or new concerning symptoms of any sort. [facility]errals: [facility] [Primary [facility]] - Follow up as needed
[2019-10-04 17:29] LABS: APPEARANCE,URINE CLEAR; BILIRUBIN,URINE NEGATIVE (NEGATIVE); COLOR,URINE AMBER; GLUCOSE, URINE NEGATIVE (NEGATIVE); KETONES,URINE TRACE mg/dL (NEGATIVE); LEUKOCYTE ESTERASE,URINE NEGATIVE (NEGATIVE); NITRITE,URINE NEGATIVE (NEGATIVE); PROTEIN,URINE NEGATIVE (NEGATIVE); URINE SPECIFIC GRAVITY 1.019
--- NOTE | 2019-10-04 18:34 | EKG REPORT ---
SEVERITY:- ABNORMAL ECG - SINUS RHYTHM NONSPECIFIC T ABNORMALITIES, DIFFUSE LEADS : Confirmed by: Urban Jones MD 04-Oct-2019 18:33:33
[2019-10-04 20:48] VITALS: BP 106/75
== END 2019-10-04 20:49 | disposition home or self-care (01) ==
LOC: ER 11:18
DX: K72.90 Hepatic failure, unspecified without coma (principal); E87.6 Hypokalemia; R53.1 Weakness; F17.200 Nicotine dependence, unspecified, uncomplicated; Z88.8 Allergy status to other drugs, medicaments and biological substances; I10 Essential (primary) hypertension
CPT/HCPCS: 36415; 80053; 81001; 82550; 82553; 83735; 84484; 85025; 93005; 93010; 99285

== ENCOUNTER 2019-10-05 11:41 | Emergency (ER) | payer OTHER ==
--- NOTE | 2019-10-05 11:54 | ER Document Report ---
ED Medical Screen (RME) - General Chief Complaint: Weakness Stated Complaint: WEAKNESS,MOBILITY ISSUES Time Seen by Provider: 10/05/19 11:52 [facility]: [facility] [[facility]] - Follow up as needed Notes: This is a 59-year-old male who presents today with generalized weakness and discomfort to his lower extremities starting at the buttocks to bilateral feet states that this is been ongoing for approximately 4 to 5 days with progressive generalized weakness he was seen here yesterday and opted to leave today he is seeking more definitive care potentially placement. Does have a history of high cholesterol hypertension cirrhosis and surgically had a cholecystectomy. TRAVEL OUTSIDE OF THE [place] IN LAST 30 DAYS: No - Related Data Allergies/Adverse Reactions: meperidine [From Demerol] Allergy (Verified 10/04/19 12:57) Past Medical History - Past Medical History Cardiac Medical History: Reports: Hx Hypercholesterolemia, Hx Hypertension Renal/ Medical History: Reports: Hx Kidney Stones. Denies: Hx Peritoneal Dialysis GI Medical History: Reports: Hx Cirrhosis Psychiatric Medical History: Denies: Hx Depression Past Surgical History: Reports: Hx Abdominal Surgery - gastric bypass, Hx Herniorrhaphy, Hx Orthopedic Surgery - sri knee/r hand Doctor's Discharge - Discharge Referrals: [facility] [[facility]] - Follow up as needed
[2019-10-05] MEDS ORDERED: NORMAL SALINE 1000 ML 1,000 ML IV PRN (11:55)
[2019-10-05 11:58] VITALS: BP 110/59
[2019-10-05 12:24] LABS: ABSOLUTE EOSINOPHILS # (AUTO) 0.1 10^3/uL (0.0-0.6); ABSOLUTE MONOCYTES (AUTO) 0.4 10^3/uL (0.1-1.4); ABSOLUTE NEUT (AUTO) 5.5 10^3/uL (1.7-8.2); BASOPHILS % (AUTO) 0.7 % (0-2); HEMATOCRIT 29.9 % (37.9-51.0); HEMOGLOBIN 10.6 g/dL (13.5-17.0); LYMPHOCYTES % (AUTO) 14.3 % (13-45); MEAN CORPUSCULAR HEMOGLOBIN 34.7 pg (27.0-33.4); MEAN CORPUSCULAR HGB CONC 35.6 g/dL (32.0-36.0); MEAN CORPUSCULAR VOLUME 97 fl (80-97); PLATELET COUNT 296 10^3/uL (150-450); RED BLOOD COUNT 3.07 10^6/uL (4.35-5.55); RED CELL DISTRIBUTION WIDTH 14.6 % (11.5-14.0); TOTAL CELLS COUNTED % (AUTO) 100 %
[2019-10-05 12:36] LABS: ALBUMIN 3.4 g/dL (3.5-5.0); ALKALINE PHOSPHATASE 129 U/L (38-126); ANION GAP 12 (5-19); ASPARTATE AMINO TRANSFERASE 46 U/L (17-59); BILIRUBIN,DIRECT 0.9 mg/dL (0.0-0.4); BILIRUBIN,TOTAL 2.2 mg/dL (0.2-1.3); BLOOD UREA NITROGEN 14 mg/dL (7-20); CALCIUM 8.7 mg/dL (8.4-10.2); CARBON DIOXIDE 25 mmol/L (22-30); CHLORIDE 96 mmol/L (98-107); GLUCOSE 90 mg/dL (75-110); POTASSIUM 3.8 mmol/L (3.6-5.0); TOTAL PROTEIN 6.9 g/dL (6.3-8.2)
--- NOTE | 2019-10-05 14:26 | ER Document Report ---
ED General - General Chief Complaint: Other Stated Complaint: WEAKNESS,MOBILITY ISSUES Time Seen by Provider: 10/05/19 11:52 Primary Care Provider: [facility] [Primary Care Provider] - Follow up as needed Notes: CHIEF COMPLAINT: Leg weakness HPI: 59-year-old male with history of cirrhosis presenting to the emergency department again for bilateral leg weakness. Patient states he was seen yesterday for similar complaint was discharged states he had severe difficulty because he lives in a hotel and getting around in the hotel normally walks with crutches because of chronic leg weakness. [facility] but states he has not been there for these complaints. Denies incontinence of urine or bowel. ROS: See HPI - all other systems were reviewed and are otherwise negative Constitutional: no fever Eyes: no drainage, no blurred vision ENT: no runny nose, no sore throat Cardiovascular: no chest pain Resp: no SOB, no cough GI: no vomiting, no diarrhea, no abdominal pain : no dysuria Integumentary: no rash Allergy: no hives Musculoskeletal: no extremity pain or swelling Neurological: no numbness/tingling, positive weakness MEDICATIONS: I agree with the patient medications as charted by the RN. ALLERGIES: I agree with the allergies as charted by the RN. PAST MEDICAL HISTORY/PAST SURGICAL HISTORY: Reviewed and agree as charted by RN. SOCIAL HISTORY: Reviewed and agree as charted by RN. FAMILY HISTORY: No significant familial comorbid conditions directly related to patient complaint EXAM: Reviewed vital signs as charted by RN. CONSTITUTIONAL: Alert and oriented and responds appropriately to questions. Well-appearing; well-nourished HEAD: Normocephalic; atraumatic EYES: PERRL; Conjunctivae clear, sclerae non-icteric ENT: normal nose; no rhinorrhea; moist mucous membranes; pharynx without lesions noted, no uvula edema or deviation, no tonsillar hypertrophy, phonation normal NECK: Supple without meningismus; non-tender; no cervical lymphadenopathy, no masses CARD: RRR; no murmurs, no clicks, no rubs, no gallops; symmetric distal pulses RESP: Normal chest excursion without splinting or tachypnea; breath sounds clear and equal bilaterally; no wheezes, no rhonchi, no rales, pulse oximetry ABD/GI: Obese, normal bowel sounds; non-distended; soft, non-tender, no rebound, no guarding; no palpable organomegaly or masses. BACK: The back appears normal and is non-tender to palpation, there is no CVA tenderness EXT: Normal ROM in all joints; non-tender to palpation; no cyanosis, no effusions, no edema SKIN: Normal color for age and race; warm; dry; good turgor; no acute lesions noted NEURO: Moves all extremities equally; Motor and sensory function intact. DTRs 2+ intact bilateral lower extremities. Strength is equal 4/5 bilateral feet on plantar flexion and extension, on lower leg flexion and extension at the knee. Strength is 4/5 bilateral thighs and hamstrings on flexion extension. There is no saddle anesthesia on exam. PSYCH: The patient's mood and manner are appropriate. Grooming and personal hygiene are appropriate. MDM: 59-year-old male with history of cirrhosis of the liver that has required paracentesis in the past presenting again for bilateral leg weakness. States he cannot walk or get around because of the weakness and that he is at risk for falls. Patient essentially stating that he would like to be placed in a fdc or assisted living for care. discussed with Dr. Estevez, attending. will discuss with case management director, have placed a call out. Patient lab work does not show acute changes from yesterday, no medical reason noted at this time based on testing that has been done that patient would need admission to the hospital TRAVEL OUTSIDE OF THE [place] IN LAST 30 DAYS: No - Related Data Allergies/Adverse Reactions: meperidine [From Demerol] Allergy (Verified 10/04/19 12:57) Home Medications: lasix Past Medical History - Social History Smoking Status: Never Smoker Chew tobacco use (# tins/day): No Frequency of alcohol use: None Drug Abuse: None Family History: Reviewed & Not Pertinent - Past Medical History Cardiac Medical History: Reports: Hx Hypercholesterolemia, Hx Hypertension Renal/ Medical History: Reports: Hx Kidney Stones. Denies: Hx Peritoneal Dialysis GI Medical History: Reports: Hx Cirrhosis Psychiatric Medical History: Denies: Hx Depression Past Surgical History: Reports: Hx Abdominal Surgery - gastric bypass, Hx Herniorrhaphy, Hx Orthopedic Surgery - sri knee/r hand Physical Exam - Vital signs Vitals: Temp 98.4 F 10/05/19 11:50 Course - Re-evaluation Re-evalutation: 10/05/19 16:23 patient has been evaluated by EDMUNDO Yanez. she is providing patient with resources. Patient has indicated that he has money to pay for his hotel or for food. He will be given resources for delivery services to bring him food at his room. [facility] he is to call them on Monday to arrange follow-up through them. Patient strength in the lower extremities was equal he has crutches at home that he normally uses to get around. He has indicated that he wanted placement for approximately a week but there is no medical indication at this time to do so. Patient will be discharged to [facility]. - Vital Signs Vital signs: Temp Pulse Resp BP Pulse Ox 98.4 F 109 H 18 110/59 L 97 10/05/19 11:58 10/05/19 11:58 10/05/19 11:58 10/05/19 11:58 10/05/19 11:58 - Laboratory Result Diagrams: 10/05/19 12:00 10/05/19 12:00 Laboratory results interpreted by me: 10/05/19 10/05/19 10/05/19 12:00 12:00 12:00 RBC 3.07 L Hgb 10.6 L Hct 29.9 L MCH 34.7 H RDW 14.6 H Sodium 133.1 L Chloride 96 L Total Bilirubin 2.2 H Direct Bilirubin 0.9 H Alkaline Phosphatase 129 H Ammonia < 8.7 L Albumin 3.4 L Discharge - Discharge Clinical Impression: Lower extremity weakness Qualifiers: Laterality: unspecified laterality Qualified Code(s): R29.898 - Other symptoms and signs involving the musculoskeletal system Condition: Stable Disposition: HOME, SELF-CARE Additional Instructions: Your medical testing today did not show any acute changes from the previous visits to the emergency department. As you normally obtain care through [facility] you must follow-up with them on Monday. You may call them to arrange follow-up or may go to the [facility] for follow-up. You may use delivery services for food as needed. Continue to use your crutches to get around as you have indicated you cannot use a walker. There is not a definitive medical indication for admission today and you cannot be placed in a temporary housing unit through the emergency department as discussed Referrals: [facility] [Primary [facility]] - Follow up as needed
== END 2019-10-05 17:46 | disposition home or self-care (01) ==
LOC: ER 11:41
DX: R29.898 Other symptoms and signs involving the musculoskeletal system (principal); E78.00 Pure hypercholesterolemia, unspecified; I10 Essential (primary) hypertension; Z87.442 Personal history of urinary calculi; Z98.84 Bariatric surgery status
CPT/HCPCS: 36415; 80053; 82140; 83690; 85025; 99283